=== PATIENT | female | born 1955 | race African-American/Black ===

== ENCOUNTER → 2016-11-09 | Outpatient (CLI) | payer OTHER ==
[2016-11-09 09:08] LABS: ABSOLUTE EOSINOPHILS # (AUTO) 0.3 10^3/uL (0.0-0.6); ABSOLUTE LYMPHOCYTES (AUTO) 1.3 10^3/uL (0.5-4.7); ABSOLUTE MONOCYTES (AUTO) 0.3 10^3/uL (0.1-1.4); ABSOLUTE NEUT (AUTO) 2.8 10^3/uL (1.7-8.2); BASOPHILS % (AUTO) 0.8 % (0-2); EOSINOPHILS % (AUTO) 5.9 % (0-6); LYMPHOCYTES % (AUTO) 27.8 % (13-45); MEAN CORPUSCULAR HEMOGLOBIN 27.6 pg (27.0-33.4); MEAN CORPUSCULAR HGB CONC 35.3 g/dL (32.0-36.0); MEAN CORPUSCULAR VOLUME 78 fl (80-97); MONOCYTES % (AUTO) 6.7 % (3-13); RED BLOOD COUNT 4.34 10^6/uL (3.72-5.28); RED CELL DISTRIBUTION WIDTH 17.4 % (11.5-14.0); SEGMENTED NEUTROPHILS % (AUTO) 58.8 % (42-78); WHITE BLOOD COUNT 4.8 10^3/uL (4.0-10.5)
[2016-11-09 09:29] LABS: ALANINE AMINOTRANSFERASE 18 U/L (9-52); ALBUMIN 4.5 g/dL (3.5-5.0); ALKALINE PHOSPHATASE 98 U/L (38-126); ANION GAP 13 (5-19); ASPARTATE AMINO TRANSFERASE 18 U/L (14-36); BILIRUBIN,TOTAL 0.8 mg/dL (0.2-1.3); BLOOD UREA NITROGEN 14 mg/dL (7-20); CALCIUM 9.5 mg/dL (8.4-10.2); CARBON DIOXIDE 27 mmol/L (22-30); CHLORIDE 106 mmol/L (98-107); CHOLESTEROL 149.58 mg/dL (0-200); CREATININE RESULT 0.97 mg/dL (0.52-1.25); Direct HDL 61 mg/dL (>40); GLUCOSE 100 mg/dL (75-110); SODIUM 145.8 mmol/L (137-145); TOTAL PROTEIN 7.4 g/dL (6.3-8.2); TRIGLYCERIDES 75 mg/dL (<150)
[2016-11-09 09:30] LABS: POTASSIUM 4.1 mmol/L (3.6-5.0)
[2016-11-09 09:40] LABS: DIRECT LDL 33 mg/dL (<100)
[2016-11-09 12:52] LABS: ERYTHROCYTE SEDIMENTATION RATE 30 mm/hr (0-30)
[2016-11-11 14:11] LABS: CYCLIC CITRUL PEPTIDE IGG/A AB 6 units (0-19)
== END ==
LOC: OD 08:02
DX: I10 Essential (primary) hypertension (principal); M79.7 Fibromyalgia
CPT/HCPCS: 36415; 80053; 80061; 83036; 84443; 85025; 85652; 86038; 86200; 86430

== ENCOUNTER 2016-11-14 04:26 | Emergency (ER) | payer OTHER ==
[2016-11-14 07:20] LABS: ABSOLUTE BASOPHILS # (AUTO) 0.1 10^3/uL (0.0-0.2); ABSOLUTE EOSINOPHILS # (AUTO) 0.4 10^3/uL (0.0-0.6); ABSOLUTE LYMPHOCYTES (AUTO) 1.3 10^3/uL (0.5-4.7); ABSOLUTE MONOCYTES (AUTO) 0.6 10^3/uL (0.1-1.4); ABSOLUTE NEUT (AUTO) 5.5 10^3/uL (1.7-8.2); BASOPHILS % (AUTO) 1.1 % (0-2); EOSINOPHILS % (AUTO) 4.9 % (0-6); HEMATOCRIT 35.1 % (36.0-47.0); HEMOGLOBIN 12.2 g/dL (12.0-15.5); HGB HCT DIFFERENCE 1.5; LYMPHOCYTES % (AUTO) 16.2 % (13-45); MEAN CORPUSCULAR HEMOGLOBIN 27.5 pg (27.0-33.4); MEAN CORPUSCULAR HGB CONC 34.8 g/dL (32.0-36.0); MEAN CORPUSCULAR VOLUME 79 fl (80-97); MONOCYTES % (AUTO) 7.9 % (3-13); RED BLOOD COUNT 4.44 10^6/uL (3.72-5.28); RED CELL DISTRIBUTION WIDTH 17.4 % (11.5-14.0); SEGMENTED NEUTROPHILS % (AUTO) 69.9 % (42-78); WHITE BLOOD COUNT 7.9 10^3/uL (4.0-10.5)
[2016-11-14 07:37] LABS: ALANINE AMINOTRANSFERASE 21 U/L (9-52); ALBUMIN 4.3 g/dL (3.5-5.0); ALKALINE PHOSPHATASE 106 U/L (38-126); ANION GAP 13 (5-19); ASPARTATE AMINO TRANSFERASE 19 U/L (14-36); BILIRUBIN,TOTAL 0.9 mg/dL (0.2-1.3); BLOOD UREA NITROGEN 14 mg/dL (7-20); CALCIUM 10.1 mg/dL (8.4-10.2); CARBON DIOXIDE 31 mmol/L (22-30); CHLORIDE 102 mmol/L (98-107); CREATINE KINASE 74 U/L (30-135); CREATININE RESULT 1.11 mg/dL (0.52-1.25); GLUCOSE 105 mg/dL (75-110); POTASSIUM 4.5 mmol/L (3.6-5.0); TOTAL PROTEIN 7.8 g/dL (6.3-8.2)
[2016-11-14 07:38] LABS: APPEARANCE,URINE CLEAR; BILIRUBIN,URINE NEGATIVE (NEGATIVE); GLUCOSE, URINE NEGATIVE (NEGATIVE); KETONES,URINE NEGATIVE (NEGATIVE); LEUKOCYTE ESTERASE,URINE NEGATIVE (NEGATIVE); NITRITE,URINE NEGATIVE (NEGATIVE); PROTEIN,URINE NEGATIVE (NEGATIVE); URINE SPECIFIC GRAVITY 1.012; UROBILINOGEN,URINE NEGATIVE mg/dL (<2.0)
[2016-11-14 07:50] LABS: CREATINE KINASE MB 0.37 ng/mL (<4.55); TROPONIN I < 0.012 ng/mL
[2016-11-14] MEDS ORDERED: AZITHROMYCIN 250 MG TABLET PO ONE (09:55)
--- NOTE | 2016-11-14 09:55 | ER Document Report ---
ED Respiratory Problem - General Mode of Arrival: Ambulatory Information source: Patient TRAVEL OUTSIDE OF THE [place] IN LAST 30 DAYS: No - HPI Patient complains to provider of: Cough Onset: Other - Approximately 3 weeks ago Duration: Worse/persistent Cough: Productive Sputum amount: Moderate Sputum color: Green - With odor Sputum consistency: Thick Associated symptoms: denies: Fever <OWEN HURLEY - Last Filed: 11/14/16 10:02> <STEPHANIE LOVE - Last Filed: 11/14/16 10:16> - General Chief Complaint: Productive Cough Stated Complaint: LABORED BREATHING,COUGH,CHEST CONGESTION Notes: Patient is a 60-year-old female presenting to the emergency department chief complaint cough onset approximately 3 weeks ago. Patient states that the cough became productive 11/11/2016, and last night the sputum became green with a bad odor. Patient denies fever. Patient states that the cough is exacerbated by laying flat, and she has chest pain secondary to her cough. Patient did receive the flu vaccination. Patient's primary care provider is the [facility]. (OWEN HURLEY) - Related Data Allergies/Adverse Reactions: No Known Allergies Allergy (Verified 11/14/16 04:38) Past Medical History - General Information source: Patient - Social History Smoking Status: Never Smoker Chew tobacco use (# tins/day): No Frequency of alcohol use: None Drug Abuse: None Family History: Reviewed & Not Pertinent - Past Medical History Cardiac Medical History: Reports: Hx Hypertension Renal/ Medical History: Denies: Hx Peritoneal Dialysis Musculoskeltal Medical History: Reports Hx Arthritis Past Surgical History: Reports: Hx Hysterectomy - Partial - Immunizations Hx Diphtheria, Pertussis, Tetanus Vaccination: Yes <OWEN HURLEY - Last Filed: 11/14/16 10:02> Review of Systems - Review of Systems Constitutional: No symptoms reported. denies: Fever EENT: No symptoms reported Cardiovascular: See HPI, Chest pain - Secondary to cough Respiratory: See HPI, Cough, Sputum Gastrointestinal: No symptoms reported Genitourinary: No symptoms reported Female Genitourinary: No symptoms reported Musculoskeletal: No symptoms reported Skin: No symptoms reported Hematologic/Lymphatic: No symptoms reported Neurological/Psychological: No symptoms reported -: Yes All other systems reviewed and negative <OWEN HURLEY - Last Filed: 11/14/16 10:02> Physical Exam - Vital signs Interpretation: Normal - General General appearance: Alert - HEENT Head: Normocephalic, Atraumatic Eyes: Normal Pupils: PERRL - Respiratory Respiratory status: No respiratory distress Chest status: Nontender Breath sounds: Productive cough - Cardiovascular Rhythm: Regular Heart sounds: Normal auscultation Murmur: No - Abdominal Inspection: Normal Distension: No distension Bowel sounds: Normal Tenderness: Nontender Organomegaly: No organomegaly - Back Back: Normal, Nontender - Extremities General upper extremity: Normal inspection, Nontender, Normal color, Normal temperature General lower extremity: Normal inspection, Nontender, Normal color, Normal temperature - Neurological Neuro grossly intact: Yes Cognition: Normal Arie Coma Scale Eye Opening: Spontaneous Roscoe Coma Scale Verbal: Oriented Roscoe Coma Scale Motor: Obeys Commands Arie Coma Scale Total: 15 Speech: Normal - Psychological Associated symptoms: Normal affect, Normal mood - Skin Skin Temperature: Warm Skin Moisture: Dry Skin Color: Normal <OWEN HURLEY - Last Filed: 11/14/16 10:02> Course - Laboratory Result Diagrams: 11/14/16 07:09 11/14/16 07:09 <OWEN HURLEY - Last Filed: 11/14/16 10:02> - Laboratory Result Diagrams: 11/14/16 07:09 11/14/16 07:09 <STEPHANIE LOVE - Last Filed: 11/14/16 10:16> - Vital Signs Vital signs: Temp Pulse Resp BP Pulse Ox 97.8 F 90 20 142/80 H 96 11/14/16 04:40 11/14/16 04:40 11/14/16 04:40 11/14/16 04:40 11/14/16 04:40 (OWEN HURLEY) (STEPHANIE LOVE) - Laboratory Laboratory results interpreted by me: 11/14/16 11/14/16 07:09 07:09 Hct 35.1 L MCV 79 L RDW 17.4 H Sodium 146.0 H Carbon Dioxide 31 H Est GFR (Non-Af Amer) 50 L (OWEN HURLEY) (STEPHANIE LOVE) Discharge <OWEN HURLEY - Last Filed: 11/14/16 10:02> <STEPHANIE LOVE - Last Filed: 11/14/16 10:16> - Discharge Clinical Impression: Bronchitis Condition: Stable Disposition: HOME, SELF-CARE Additional Instructions: Bronchitis You have acute bronchitis. This disease is an infection or inflammation of the air passageways in your lungs. Symptoms usually include cough, low grade fever, shortness of breath, and wheezing. The cough usually persists for a couple of weeks. Most cases of bronchitis get better without antibiotics. We prescribe antibiotics when we believe bacteria are damaging your airways, or if there's high risk the bronchitis will worsen into pneumonia. Increase your fluid intake. A cool mist humidifier may make your lungs more comfortable. An expectorant (cough medicine that loosens phlegm) can help. If you smoke, STOP!!! Recovery from bronchitis can be somewhat slow, but you should see improvement within a day or two. Repeated episodes of bronchitis may result in lung damage -- for example, chronic bronchitis, recurrent pneumonias, or emphysema. Call the doctor if you develop increasing fever, shortness of breath, chest pain, bloody sputum, or otherwise worsen. If you have not improved at all after several days, contact the physician. START THE MEDICATION PRESCRIBED TOMORROW. DRINK PLENTY OF FLUIDS. GET PLENTY OF REST. TRY ROBITUSSIN-DM FOR COUGH. FOLLOW UP WITH A LOCAL MEDICAL DOCTOR IF NOT IMPROVING. RETURN TO THE EMERGENCY ROOM IF ANY NEW OR WORSENING SYMPTOMS. Forms: Return to Work Scribe Attestation: 11/14/16 09:59 I personally performed the services described in the documentation, reviewed and edited the documentation which was dictated to the scribe in my presence, and it accurately records my words and actions. (STEPHANIE LOVE) Scribe Documentation - Scribe Written by Lavelle:: Owen Hurley 11/14/2016 0955 acting as scribe for :: Fanny <OWEN HURLEY - Last Filed: 11/14/16 10:02>
[2016-11-14 10:21] VITALS: BP 148/85
--- NOTE | 2016-11-14 20:02 | EKG REPORT ---
SEVERITY:- BORDERLINE ECG - SINUS RHYTHM PROBABLE LEFT ATRIAL ABNORMALITY : Confirmed by: Te Finnegan 14-Nov-2016 20:01:48
== END 2016-11-14 10:18 | disposition home or self-care (01) ==
LOC: ER 04:26
DX: J40 Bronchitis, not specified as acute or chronic (principal); R05 Cough; R06.02 Shortness of breath; R09.89 Other specified symptoms and signs involving the circulatory and respiratory systems
CPT/HCPCS: 36415; 71010; 80053; 81001; 82550; 82553; 83880; 84484; 85025; 93005; 93010; 99284

== ENCOUNTER → 2017-03-15 | Outpatient (CLI) | payer OTHER ==
[~2017-03-15] MED LIST: ALBUTEROL SULFATE 0.083% NEB 2.5 MG/3 ML AMPUL NEB ONE
--- NOTE | 2017-03-15 16:34 | Pulmonary Function Test ---
Pulmonary Function Test Date of Procedure:: 03/15/17 INDICATION:: Dyspnea Referring Provider: Dr. Oneyda Seo [employer]: Mayte Peters [employer] ENGINEER, [employer] - Report Spirometry: FVC 2.92 L 87% postbronchodilator therapy 2.99 L 89% FEV1 2.31 L 86% postbronchodilator therapy 2.38 L 89% FEV1/FVC % 79 postbronchodilator therapy 79 predicted 82 FEF 25-75% 2.47 88% postbronchodilator therapy 2.46 88% Impression: No evidence for obstructive ventilatory defect.
== END ==
LOC: RT 08:04
PROVIDERS: ATTEND Internal Medicine
DX: R06.2 Wheezing (principal)
CPT/HCPCS: 94060

== ENCOUNTER 2017-06-05 19:13 | Emergency (ER) | payer SELFPAY ==
[2017-06-05] MEDS ORDERED: ASPIRIN 81 MG TABLET, CHEWABLE PO ONE (19:21)
--- NOTE | 2017-06-05 20:31 | EKG REPORT ---
SEVERITY:- NORMAL ECG - SINUS RHYTHM : Confirmed by: Te Finnegan 05-Jun-2017 20:30:36
--- NOTE | 2017-06-05 21:05 | RADIOLOGY REPORT (SQ) ---
EXAM DESCRIPTION: CHEST SINGLE VIEW COMPLETED DATE/TIME: 06/05/2017 8:56 pm REASON FOR STUDY: congestion COMPARISON: 11/14/2016 EXAM PARAMETERS: NUMBER OF VIEWS: One view. TECHNIQUE: Single frontal radiographic view of the chest acquired. RADIATION DOSE: NA LIMITATIONS: None. FINDINGS: LUNGS AND PLEURA: No opacities, masses or pneumothorax. No pleural effusion. MEDIASTINUM AND HILAR STRUCTURES: No masses. Contour normal. HEART AND VASCULAR STRUCTURES: Heart normal in size. Normal vasculature. BONES: No acute findings. HARDWARE: None in the chest. OTHER: No other significant finding. IMPRESSION: NO ACUTE RADIOGRAPHIC FINDING IN THE CHEST. TECHNICAL DOCUMENTATION: JOB ID: [id number]
[2017-06-05] MEDS ORDERED: PREDNISONE 20 MG TABLET PO ONE (22:24)
[2017-06-05] MEDS ORDERED: ALBUTEROL SULFATE HFA (90 MCG/PUFF) 8 GM MDI (1 MDI/ER DISP) IH ONE (22:24)
--- NOTE | 2017-06-05 22:25 | ER Document Report ---
ED Respiratory Problem - General Mode of Arrival: Ambulatory Information source: Patient TRAVEL OUTSIDE OF THE [place] IN LAST 30 DAYS: No <NETTA KEE - Last Filed: 06/05/17 23:42> - General TRAVEL OUTSIDE OF THE [place] IN LAST 30 DAYS: No <ELEUTERIO THORPE - Last Filed: 06/06/17 00:28> - General Chief Complaint: Chest Congestion Stated Complaint: CONGESTION/CHEST PAIN Time Seen by Provider: 06/05/17 20:13 Notes: Patient is a 61-year-old female who presents to the emergency department today with complaints of a cough. According to daughter at bedside, the patient always has a cough. Patient states she has "chronic bronchitis". Patient states she has a burning pain in her left lung. Patient states she feels that she is wheezing and is having voice changes. (NETTA KEE) - Related Data Allergies/Adverse Reactions: No Known Allergies Allergy (Verified 06/05/17 19:17) Past Medical History - General Information source: Patient - Social History Smoking Status: Unknown if Ever Smoked Drug Abuse: None Family History: Reviewed & Not Pertinent Patient has suicidal ideation: No Patient has homicidal ideation: No - Past Medical History Cardiac Medical History: Reports: Hx Hypertension Musculoskeltal Medical History: Reports Hx Arthritis Past Surgical History: Reports: Hx Hysterectomy <NETTA KEE - Last Filed: 06/05/17 23:42> - Social History Smoking Status: Unknown if Ever Smoked Drug Abuse: None Family History: Reviewed & Not Pertinent Patient has suicidal ideation: No Patient has homicidal ideation: No - Past Medical History Cardiac Medical History: Reports: Hx Hypertension Renal/ Medical History: Denies: Hx Peritoneal Dialysis Musculoskeltal Medical History: Reports Hx Arthritis Past Surgical History: Reports: Hx Hysterectomy - Immunizations Hx Diphtheria, Pertussis, Tetanus Vaccination: Yes <ELEUTERIO THORPE - Last Filed: 06/06/17 00:28> Review of Systems - Review of Systems Constitutional: No symptoms reported EENT: No symptoms reported Cardiovascular: No symptoms reported Respiratory: See HPI, Cough Gastrointestinal: No symptoms reported Genitourinary: No symptoms reported Female Genitourinary: No symptoms reported Musculoskeletal: No symptoms reported Skin: No symptoms reported Hematologic/Lymphatic: No symptoms reported Neurological/Psychological: No symptoms reported -: Yes All other systems reviewed and negative <NETTA KEE - Last Filed: 06/05/17 23:42> Physical Exam <NETTA KEE - Last Filed: 06/05/17 23:42> <ELEUTERIO THORPE - Last Filed: 06/06/17 00:28> - Vital signs Vitals: Temp Pulse Resp BP Pulse Ox 98.7 F 75 20 148/79 H 97 06/05/17 19:17 06/05/17 19:17 06/05/17 19:17 06/05/17 19:17 06/05/17 19:17 - Notes Notes: Physical Exam: General: Alert, appears well. HEENT: Normocephalic. Atraumatic. PERRL. Extraocular movements intact. Oropharynx clear. Nasal congestion. Voice consistent with laryngitis. Neck: Supple. Non-tender. Respiratory: No respiratory distress. Clear and equal breath sounds bilaterally. Cardiovascular: Regular rate and rhythm. Abdominal: Normal Inspection. Non-tender. No distension. Normal Bowel Sounds. Back: Non-tender. No deformity or step off. Extremities: Moves all four extremities. Upper extremities: Normal inspection. Normal ROM. Lower extremities: Normal inspection. No edema. Normal ROM. Neurological: Normal cognition. AAOx4. Normal speech. Psychological: Normal affect. Normal Mood. Skin: Warm. Dry. Normal color. (NETTA KEE) Course <NETTA KEE - Last Filed: 06/05/17 23:42> - Diagnostic Test Radiology reviewed: Reports reviewed <ELEUTERIO THORPE - Last Filed: 06/06/17 00:28> - Re-evaluation Re-evalutation: 06/05 Patient with upper respiratory infection that is unlikely bacterial, however patient would like antibiotics. Patient will also been given steroids as her daughter states that this is helped in the past. Vitals are stable. Afebrile. No difficulty breathing. Stable for discharge. Follow-up with PMD. (ELEUTERIO THORPE) - Vital Signs Vital signs: Temp Pulse Resp BP Pulse Ox 98.7 F 75 20 129/81 H 97 06/05/17 19:17 06/05/17 19:17 06/05/17 19:17 06/05/17 22:45 06/05/17 22:46 Discharge <NETTA KEE - Last Filed: 06/05/17 23:42> <ELEUTERIO THORPE - Last Filed: 06/06/17 00:28> - Discharge Clinical Impression: Cough Condition: Stable Disposition: HOME, SELF-CARE Instructions: Bronchitis ([facility]) Additional Instructions: Please follow-up with your doctor this week. Prescriptions: Azithromycin [Zithromax 250 mg Tablet] 250 mg PO ASDIR PRN #6 tablet PRN Reason: Prednisone 40 mg PO DAILY #6 tablet Referrals: [facility] [Primary Care Provider] - Follow up as needed Scribe Attestation: 06/06/17 00:28 I personally performed the services described in the documentation, reviewed and edited the documentation which was dictated to the scribe in my presence, and it accurately records my words and actions. (ELEUTERIO THORPE) Scribe Documentation - Scribe Written by Lavelle:: Lavelle Montero, 06/05/2017 2354 acting as scribe for :: Jennifer <NETTA KEE - Last Filed: 06/05/17 23:42>
[2017-06-05] MEDS ORDERED: ALBUTEROL SULFATE 0.083% NEB 2.5 MG/3 ML AMPUL NEB ONE (22:29)
[2017-06-05] MEDS ORDERED: PREDNISONE 20 MG TABLET ONE (22:29)
[2017-06-05 22:51] VITALS: BP 129/81
== END 2017-06-05 22:51 | disposition home or self-care (01) ==
LOC: ER 19:13
DX: R05 Cough (principal); R09.89 Other specified symptoms and signs involving the circulatory and respiratory systems; R07.9 Chest pain, unspecified
CPT/HCPCS: 93005; 99284; 36415; 84484; 71010; 93010; J7512; J3490

== ENCOUNTER → 2017-08-11 | Outpatient (CLI) | payer OTHER ==
--- NOTE | 2017-08-11 11:30 | RADIOLOGY REPORT (SQ) ---
EXAM DESCRIPTION: VENOUS BILATERAL LOWER COMPLETED DATE/TIME: 08/11/2017 11:19 am REASON FOR STUDY: PAIN M79.661 PAIN IN RIGHT LOWER LEG M79.662 PAIN IN LEFT LOWER LEG COMPARISON: None. TECHNIQUE: Dynamic and static zhang scale and color images acquired of both lower extremity venous sy stems. Selected spectral images acquired with additional compression and augmentation maneuvers. Imag es stored on PACS. LIMITATIONS: None. FINDINGS: RIGHT LEG COMMON FEMORAL AND FEMORAL: Normal phasicity, compression and augmentation. No visualized echogenic m aterial on zhang scale. No defects on color images. POPLITEAL: Normal compression and augmentation. No visualized echogenic material on zhang scale. No de fects on color images. CALF VESSELS: Normal compression and augmentation. No visualized echogenic material on zhang scale. No defects on color image. GSV AND SSV: Normal compression. No visualized echogenic material on zhang scale. No defects on color images. ANY DEEP VENOUS INSUFFICIENCY: Not evaluated. ANY EVIDENCE OF POPLITEAL CYST: No. OTHER: No other significant finding. LEFT LEG COMMON FEMORAL AND FEMORAL: Normal phasicity, compression and augmentation. No visualized echogenic m aterial on zhang scale. No defects on color images. POPLITEAL: Normal compression and augmentation. No visualized echogenic material on zhang scale. No de fects on color images. CALF VESSELS: Normal compression and augmentation. No visualized echogenic material on zhang scale. No defects on color images. GSV AND SSV: Normal compression. No visualized echogenic material on zhang scale. No defects on color images. ANY DEEP VENOUS INSUFFICIENCY: Not evaluated. ANY EVIDENCE POPLITEAL CYST: No. OTHER: No other significant finding. IMPRESSION: NO EVIDENCE DVT OR SVT IN EITHER LEG. TECHNICAL DOCUMENTATION: JOB ID: [id number] [employer]- All Rights Reserved
== END ==
LOC: CCC 10:31
DX: M79.661 Pain in right lower leg (principal); M79.662 Pain in left lower leg
CPT/HCPCS: 93970

== ENCOUNTER → 2017-10-31 | Outpatient (CLI) | payer BC ==
[2017-10-31 08:24] LABS: ABSOLUTE BASOPHILS # (AUTO) 0.1 10^3/uL (0.0-0.2); ABSOLUTE EOSINOPHILS # (AUTO) 0.3 10^3/uL (0.0-0.6); ABSOLUTE LYMPHOCYTES (AUTO) 1.2 10^3/uL (0.5-4.7); ABSOLUTE MONOCYTES (AUTO) 0.4 10^3/uL (0.1-1.4); ABSOLUTE NEUT (AUTO) 2.5 10^3/uL (1.7-8.2); BASOPHILS % (AUTO) 1.2 % (0-2); EOSINOPHILS % (AUTO) 6.7 % (0-6); HEMATOCRIT 34.8 % (36.0-47.0); HEMOGLOBIN 12.1 g/dL (12.0-15.5); LYMPHOCYTES % (AUTO) 26.7 % (13-45); MEAN CORPUSCULAR HEMOGLOBIN 28.2 pg (27.0-33.4); MEAN CORPUSCULAR HGB CONC 34.8 g/dL (32.0-36.0); MEAN CORPUSCULAR VOLUME 81 fl (80-97); MONOCYTES % (AUTO) 9.8 % (3-13); PLATELET COUNT 245 10^3/uL (150-450); RED BLOOD COUNT 4.31 10^6/uL (3.72-5.28); RED CELL DISTRIBUTION WIDTH 16.8 % (11.5-14.0); SEGMENTED NEUTROPHILS % (AUTO) 55.6 % (42-78); TOTAL CELLS COUNTED % (AUTO) 100 %; WHITE BLOOD COUNT 4.4 10^3/uL (4.0-10.5)
[2017-10-31 08:46] LABS: ALANINE AMINOTRANSFERASE 25 U/L (9-52); ALBUMIN 4.6 g/dL (3.5-5.0); ALKALINE PHOSPHATASE 89 U/L (38-126); ANION GAP 10 (5-19); ASPARTATE AMINO TRANSFERASE 27 U/L (14-36); BILIRUBIN,DIRECT 0.4 mg/dL (0.0-0.4); BILIRUBIN,TOTAL 1.1 mg/dL (0.2-1.3); BLOOD UREA NITROGEN 13 mg/dL (7-20); CALCIUM 10.1 mg/dL (8.4-10.2); CARBON DIOXIDE 31 mmol/L (22-30); CHLORIDE 104 mmol/L (98-107); CHOLESTEROL 145.05 mg/dL (0-200); GLUCOSE 111 mg/dL (75-110); POTASSIUM 4.4 mmol/L (3.6-5.0); SODIUM 144.6 mmol/L (137-145); TOTAL PROTEIN 7.7 g/dL (6.3-8.2); TRIGLYCERIDES 96 mg/dL (<150)
[2017-10-31 08:57] LABS: DIRECT LDL 38 mg/dL (<100)
== END ==
LOC: OD 07:38
PROVIDERS: ATTEND Family Medicine Geriatric Medicine
DX: I10 Essential (primary) hypertension (principal); D64.9 Anemia, unspecified; M17.0 Bilateral primary osteoarthritis of knee; Z79.899 Other long term (current) drug therapy
CPT/HCPCS: 36415; 80053; 80061; 82607; 82746; 84443; 85025

== ENCOUNTER → 2017-11-07 | Outpatient (CLI) | payer BC | LOC: OD 07:43 | PROVIDERS: ATTEND Family Medicine Geriatric Medicine | DX: R73.9 Hyperglycemia, unspecified (principal); Z79.899 Other long term (current) drug therapy | CPT/HCPCS: 36415; 82947; 82950; 83036 ==

== ENCOUNTER → 2018-01-04 | Outpatient (CLI) | payer BC ==
--- NOTE | 2018-01-04 11:53 | RADIOLOGY REPORT (SQ) ---
EXAM DESCRIPTION: CHEST PA/LATERAL COMPLETED DATE/TIME: 01/04/2018 10:42 am REASON FOR STUDY: COUGH,COPD COMPARISON: May 2017 EXAM PARAMETERS: NUMBER OF VIEWS: two views TECHNIQUE: Digital Frontal and Lateral radiographic views of the chest acquired. RADIATION DOSE: NA LIMITATIONS: none FINDINGS: LUNGS AND PLEURA: No opacities, masses or pneumothorax. No pleural effusion. MEDIASTINUM AND HILAR STRUCTURES: No masses or contour abnormalities. HEART AND VASCULAR STRUCTURES: Heart normal size. No evidence for failure. BONES: No acute findings. HARDWARE: None in the chest. OTHER: No other significant finding. IMPRESSION: NO SIGNIFICANT RADIOGRAPHIC FINDING IN THE CHEST. TECHNICAL DOCUMENTATION: JOB ID: [id number] [employer]- All Rights Reserved Reading location - IP/workstation name: [email or web address]
== END ==
LOC: OD 10:30
PROVIDERS: ATTEND Family Medicine Geriatric Medicine
DX: J44.9 Chronic obstructive pulmonary disease, unspecified (principal); R05 Cough
CPT/HCPCS: 71046

== ENCOUNTER 2018-02-11 06:29 | Observation (INO) | payer BC ==
[2018-02-11] MEDS ORDERED: MAG HYDROX/AL HYDROX/SIMETH SUSP 30 ML UDCUP PO ONE (07:09)
[2018-02-11] MEDS ORDERED: ONDANSETRON HCL INJ/PF 4 MG/2 ML SDV IV ONE (07:09)
[2018-02-11] MEDS ORDERED: LIDOCAINE 2% VISCOUS SOLN 20 ML UDCUP PO ONE (07:09)
--- NOTE | 2018-02-11 07:09 | ER Document Report ---
ED General <STEPHANIE LOVE - Last Filed: 02/11/18 08:34> - General Mode of Arrival: Ambulatory Information source: Patient TRAVEL OUTSIDE OF THE [place] IN LAST 30 DAYS: No <NETTA KEE - Last Filed: 02/11/18 08:54> - General Chief Complaint: Chest Pain Stated Complaint: CHEST PAIN Time Seen by Provider: 02/11/18 07:00 Notes: Patient is a 62 year old female that presents to the emergency department today with complaints of upper abdominal pain with associated vomiting. Patient states her pain has been consistent since onset and did not change with the vomiting. Patient mentions that she has been seen here before for these symptoms but upon review of records it does not appear that this is correct. Daughter states "Mom this is [place], [place]" which suggests she has been seen elsewhere for this. (NETTA KEE) - Related Data Allergies/Adverse Reactions: No Known Allergies Allergy (Verified 06/05/17 19:17) Past Medical History - General Information source: Patient - Social History Smoking Status: Never Smoker Cigarette use (# per day): No Frequency of alcohol use: None Drug Abuse: None Lives with: Family Family History: Reviewed & Not Pertinent - Past Medical History Cardiac Medical History: Reports: Hx Hypertension Renal/ Medical History: Denies: Hx Peritoneal Dialysis Musculoskeltal Medical History: Reports Hx Arthritis Past Surgical History: Reports: Hx Hysterectomy - Immunizations Hx Diphtheria, Pertussis, Tetanus Vaccination: Yes <NETTA KEE - Last Filed: 02/11/18 08:54> Review of Systems - Review of Systems Constitutional: No symptoms reported EENT: No symptoms reported Cardiovascular: No symptoms reported Respiratory: No symptoms reported Gastrointestinal: See HPI, Abdominal pain, Vomiting Genitourinary: No symptoms reported Female Genitourinary: No symptoms reported Musculoskeletal: No symptoms reported Skin: No symptoms reported Hematologic/Lymphatic: No symptoms reported Neurological/Psychological: No symptoms reported -: Yes All other systems reviewed and negative <NETTA KEE - Last Filed: 02/11/18 08:54> Physical Exam <STEPHANIE LOVE - Last Filed: 02/11/18 08:34> <NETTA KEE - Last Filed: 02/11/18 08:54> - Vital signs Vitals: Temp Pulse Resp BP Pulse Ox 98.8 F 116 H 22 H 145/93 H 100 02/11/18 06:47 02/11/18 06:47 02/11/18 06:47 02/11/18 06:47 02/11/18 06:47 - Notes Notes: Physical Exam: General: Alert, hyperventilating, appears uncomfortable. HEENT: Normocephalic. Atraumatic. PERRL. Extraocular movements intact. Oropharynx clear. Neck: Supple. Non-tender. Respiratory: No respiratory distress. Clear and equal breath sounds bilaterally. Tachypneic. No chest wall or sternal tenderness with palpation. Cardiovascular: Regular rate and rhythm. Abdominal: RUQ and epigastric tenderness with palpation. No distension. Normal Bowel Sounds. Back: Non-tender. No deformity or step off. Extremities: Moves all four extremities. Upper extremities: Normal inspection. Normal ROM. Lower extremities: Normal inspection. No edema. Normal ROM. Neurological: Normal cognition. AAOx4. Normal speech. Psychological: Normal affect. Normal Mood. Skin: Warm. Dry. Normal color. (NETTA KEE) Course - Laboratory Result Diagrams: 02/11/18 07:15 02/11/18 07:15 - Diagnostic Test Radiology reviewed: Image reviewed, Reports reviewed - Multiple small gallstones. Radiologist report is no gallbladder wall thickening, the techs worksheet reports gallbladder wall thickening and positive Ewing sign. - EKG Interpretation by Me EKG shows normal: Sinus rhythm, [place], Intervals, QRS Complexes. abnormal: ST-T Waves - Inferior to T abnormalities Rate: Tachycardia - 113 When compared to previous EKG there are: No significant change - Consults Dr. Munoz Time consulted: 08:35 Consulted provider: will come to ER <STEPHANIE LOVE - Last Filed: 02/11/18 08:34> - Laboratory Result Diagrams: 02/11/18 07:15 02/11/18 07:15 <NETTA KEE - Last Filed: 02/11/18 08:54> - Vital Signs Vital signs: Temp Pulse Resp BP Pulse Ox 98.8 F 116 H 22 H 145/93 H 100 02/11/18 06:47 02/11/18 06:47 02/11/18 06:47 02/11/18 06:47 02/11/18 06:47 - Laboratory Laboratory results interpreted by me: 02/11/18 02/11/18 07:15 07:15 RDW 16.7 H Seg Neutrophils % 84.9 H Lymphocytes % 11.9 L Monocytes % 2.7 L Anion Gap 21 H Glucose 182 H Calcium 10.6 H Total Protein 8.4 H Albumin 5.1 H Discharge - Discharge Admitting Provider: Surgicalist Unit Admitted: Surgical Floor <STEPHANIE LOVE - Last Filed: 02/11/18 08:34> <NETTA KEE - Last Filed: 02/11/18 08:54> - Discharge Clinical Impression: Cholelithiasis and acute cholecystitis without obstruction Condition: Stable Scribe Attestation: 02/11/18 08:25 I personally performed the services described in the documentation, reviewed and edited the documentation which was dictated to the scribe in my presence, and it accurately records my words and actions. (STEPHANIE LOVE) Scribe Documentation - Scribe Written by Lavelle:: Lavelle Monetro, 02/11/2018 0819 acting as scribe for :: Fanny <NETTA KEE - Last Filed: 02/11/18 08:54>
[2018-02-11] MEDS ORDERED: MORPHINE SULFATE 10 MG/ML INJ IV ONE (07:11)
[2018-02-11 07:36] LABS: ABSOLUTE MONOCYTES (AUTO) 0.2 10^3/uL (0.1-1.4); ABSOLUTE NEUT (AUTO) 7.2 10^3/uL (1.7-8.2); BASOPHILS % (AUTO) 0.4 % (0-2); EOSINOPHILS % (AUTO) 0.1 % (0-6); HEMATOCRIT 37.1 % (36.0-47.0); HEMOGLOBIN 12.8 g/dL (12.0-15.5); LYMPHOCYTES % (AUTO) 11.9 % (13-45); MEAN CORPUSCULAR HEMOGLOBIN 28.1 pg (27.0-33.4); MEAN CORPUSCULAR HGB CONC 34.6 g/dL (32.0-36.0); MEAN CORPUSCULAR VOLUME 81 fl (80-97); MONOCYTES % (AUTO) 2.7 % (3-13); PLATELET COUNT 276 10^3/uL (150-450); RED BLOOD COUNT 4.57 10^6/uL (3.72-5.28); RED CELL DISTRIBUTION WIDTH 16.7 % (11.5-14.0); SEGMENTED NEUTROPHILS % (AUTO) 84.9 % (42-78); TOTAL CELLS COUNTED % (AUTO) 100 %; WHITE BLOOD COUNT 8.5 10^3/uL (4.0-10.5)
[2018-02-11 07:45] LABS: ALANINE AMINOTRANSFERASE 22 U/L (9-52); ALBUMIN 5.1 g/dL (3.5-5.0); ALKALINE PHOSPHATASE 109 U/L (38-126); ASPARTATE AMINO TRANSFERASE 25 U/L (14-36); BILIRUBIN,DIRECT 0.4 mg/dL (0.0-0.4); BILIRUBIN,TOTAL 0.8 mg/dL (0.2-1.3); BLOOD UREA NITROGEN 14 mg/dL (7-20); CALCIUM 10.6 mg/dL (8.4-10.2); CARBON DIOXIDE 24 mmol/L (22-30); CHLORIDE 99 mmol/L (98-107); CREATINE KINASE 63 U/L (30-135); GLUCOSE 182 mg/dL (75-110); TOTAL PROTEIN 8.4 g/dL (6.3-8.2)
[2018-02-11 07:51] LABS: ANION GAP 21 (5-19); SODIUM 144.4 mmol/L (137-145)
--- NOTE | 2018-02-11 08:15 | RADIOLOGY REPORT (SQ) ---
EXAM DESCRIPTION: U/S ABDOMEN LIMITED W/O DOP COMPLETED DATE/TIME: 02/11/2018 7:57 am REASON FOR STUDY: RUQ and epigastric abd pain with nausea vomiting COMPARISON: None. TECHNIQUE: Dynamic and static grayscale images acquired of the abdomen and recorded on PACS. Jasmyneo monie selected color Doppler and spectral images recorded. LIMITATIONS: None. FINDINGS: PANCREAS: No masses. No peripancreatic edema or fluid collections. LIVER: Echotexture is coarse with increased echogenicity consistent with fatty infiltration. LIVER VASCULATURE: Normal directional flow of the main portal vein and hepatic veins. GALLBLADDER: Gallstone(s). No pericholecystic fluid. No wall thickening. ULTRASOUND-DETECTED GUZMAN'S SIGN: Negative. INTRAHEPATIC DUCTS AND COMMON DUCT: CBD and intrahepatic ducts normal caliber. No filling defects. INFERIOR VENA CAVA: Normal flow. AORTA: No aneurysm. RIGHT KIDNEY: Normal size. Normal echogenicity. No solid or suspicious masses. No hydronephrosis. No calcifications. PERITONEAL AND RIGHT PLEURAL SPACE: No ascites or effusions. OTHER: No other significant finding. IMPRESSION: GALLSTONES. FATTY INFILTRATION OF THE LIVER. OTHERWISE NORMAL RIGHT UPPER QUADRANT ULT RASOUND. TECHNICAL DOCUMENTATION: JOB ID: [id number] [employer]- All Rights Reserved Reading location - IP/workstation name: [email or web address]
[2018-02-11 10:50] LABS: APPEARANCE,URINE CLEAR; BILIRUBIN,URINE NEGATIVE (NEGATIVE); COLOR,URINE YELLOW; GLUCOSE, URINE 50 mg/dL (NEGATIVE); KETONES,URINE 20 mg/dL (NEGATIVE); LEUKOCYTE ESTERASE,URINE NEGATIVE (NEGATIVE); NITRITE,URINE NEGATIVE (NEGATIVE); PROTEIN,URINE 30 mg/dL (NEGATIVE); URINE SPECIFIC GRAVITY 1.024; UROBILINOGEN,URINE NEGATIVE mg/dL (<2.0)
[2018-02-11] MEDS ORDERED: NORMAL SALINE 1000 ML 1,000 ML IV PRN (11:10)
[2018-02-11] MEDS ORDERED: PROCHLORPERAZINE EDISYLATE INJ 10 MG/2 ML VIAL IV PRN (11:31)
[2018-02-11] MEDS ORDERED: MORPHINE SULFATE 10 MG/ML INJ IV PRN (14:16)
[2018-02-11] MEDS ORDERED: GLUCAGON,HUMAN RECOMB 1 MG INJ SUBCUT PRN (14:16)
[2018-02-11] MEDS ORDERED: DEXTROSE 50%-WATER 25 GM/50 ML DISP.SYRIN IV PRN ×2 (14:16)
[2018-02-11] MEDS ORDERED: DEXTROSE 40% GEL 15 GM TUBE PO PRN ×2 (14:16)
[2018-02-11] MEDS ORDERED: ONDANSETRON HCL INJ/PF 4 MG/2 ML SDV IV PRN (14:16)
--- NOTE | 2018-02-11 14:16 | PDOC H&P ---
History of Present Illness Admission Date/PCP: 02/11/18 09:09 RENALDO YEBOAH MD Patient complains of: RUQ abdominal pain History of Present Illness: TIANNA SAENZ is a 62 year old female with a 24 hrs hx of abdominal pain, nausea, emesis. She presented to the ER with the above symptoms and an US of the GB has been done and it demonstrates cholelithiasis with normal appearing gallbladder. Past Medical History Cardiac Medical History: Reports: Hypertension Pulmonary Medical History: Reports: Chronic Obstructive Pulmonary Disease (COPD) Musculoskeltal Medical History: Reports: Arthritis Past Surgical History Past Surgical History: Reports: Hysterectomy Social History Lives with: Family Smoking Status: Never Smoker Frequency of Alcohol Use: None Hx Recreational Drug Use: No Drugs: None Hx Prescription Drug Abuse: No - Advance Directive Resuscitation Status: Full Code Family History Family History: Reviewed & Not Pertinent Parental Family History Reviewed: No Children Family History Reviewed: No Sibling(s) Family History Reviewed.: No Medication/Allergy Home Medications: Hydrochlorothiazide [Hydrochlorothiazide] 12.5 mg PO BID 02/11/18 Metoprolol Tartrate [Lopressor 25 mg Tablet] 12.5 mg PO BID 02/11/18 Allergies/Adverse Reactions: No Known Allergies Allergy (Verified 06/05/17 19:17) Physical Exam Vital Signs: Temp Pulse Resp BP Pulse Ox 98.4 F 123 H 16 142/80 H 97 02/11/18 10:23 02/11/18 10:23 02/11/18 10:23 02/11/18 10:23 02/11/18 10:23 General appearance: PRESENT: no acute distress, cooperative Head exam: PRESENT: atraumatic Eye exam: PRESENT: EOMI Mouth exam: PRESENT: moist, neck supple Neck exam: PRESENT: full ROM Respiratory exam: PRESENT: clear to auscultation sally Cardiovascular exam: PRESENT: RRR GI/Abdominal exam: PRESENT: Ewing's sign, normal bowel sounds, soft, tenderness - right upper quadrant Musculoskeletal exam: PRESENT: full ROM Neurological exam: PRESENT: alert, altered Psychiatric exam: PRESENT: flat affect Results Laboratory Results: 02/11/18 10:09 Urine Color YELLOW Urine Appearance CLEAR Urine pH 7.0 Ur Specific [place] 1.024 Urine Protein 30 H Urine Glucose (UA) 50 H Urine Ketones 20 H Urine Blood NEGATIVE Urine Nitrite NEGATIVE Ur Leukocyte Esterase NEGATIVE Urine WBC (Auto) 1 Urine RBC (Auto) 0 Impressions: Abdomen Ultrasound 02/11/18 07:09 IMPRESSION: GALLSTONES. FATTY INFILTRATION OF THE LIVER. OTHERWISE NORMAL RIGHT UPPER QUADRANT ULTRASOUND. Assessment & Plan - Diagnosis (1) Cholelithiasis Qualifiers: Cholelithiasis location: gallbladder Cholecystitis presence: without cholecystitis Biliary obstruction: without biliary obstruction Qualified Code(s): K80.20 - Calculus of gallbladder without cholecystitis without obstruction Is this a current diagnosis for this admission?: Yes - Plan Summary Plan Summary: A/ RUQ abdominal pain US of the gallbladder shows cholelithiasis Symptomatic choilelithiasis normal blood work PE demonstrated abdominal RUQ tenderness P/ Admit Clear liquid diet NPO after midnight Consent for laparoscopic cholecystectomy possible open, possible cholangiogram Mefoxin 2 gr IVPB preop IVF Procedure, risks, benefits, complications, including bleeding from the liver and or injury of the common bile duct requiring transfer to a tertiary medical center for open repair have been discussed with the patient; she understands all the above, her questions were answered, and she decides to proceed. In addition, the patient declines possible blood transfusion because of her anglican believes (she is a [employer]); she has been fully explained risks and alternatives of blood transfusion and the risks of not receiving blood products if needed, she understands all of them and still declines blood transfusion. Anesthesia will be made aware.
--- NOTE | 2018-02-11 16:15 | EKG REPORT ---
SEVERITY:- BORDERLINE ECG - SINUS TACHYCARDIA BORDERLINE T ABNORMALITIES, INFERIOR LEADS : Confirmed by: Te Finnegan 11-Feb-2018 16:14:14
--- NOTE | 2018-02-11 16:15 | EKG REPORT ---
SEVERITY:- BORDERLINE ECG - SINUS TACHYCARDIA PROBABLE LEFT ATRIAL ABNORMALITY BORDERLINE PROLONGED QT INTERVAL : Confirmed by: Te Finnegan 11-Feb-2018 16:14:06
[2018-02-11] MEDS: PROMETHAZINE HCL INJ 25 MG/1 ML VIAL IV PRN (16:16)
[2018-02-11] MEDS: FAMOTIDINE INJ/PF 20 MG/2 ML SDV IV SCH (21:57)
[2018-02-12] MEDS ORDERED: CEFOXITIN SODIUM 2 GM in DEXTROSE 5%-WATER 100 ML IV PRN (05:00)
[2018-02-12] MEDS: NORMAL SALINE 1000 ML 1,000 ML IV PRN (05:10)
[2018-02-12 06:16] LABS: HEMATOCRIT 35.6 % (36.0-47.0); HEMOGLOBIN 12.3 g/dL (12.0-15.5); MEAN CORPUSCULAR HGB CONC 34.4 g/dL (32.0-36.0); MEAN CORPUSCULAR VOLUME 81 fl (80-97); PLATELET COUNT 254 10^3/uL (150-450); RED BLOOD COUNT 4.39 10^6/uL (3.72-5.28); RED CELL DISTRIBUTION WIDTH 17.3 % (11.5-14.0); WHITE BLOOD COUNT 6.3 10^3/uL (4.0-10.5)
[2018-02-12 06:26] LABS: ALANINE AMINOTRANSFERASE 18 U/L (9-52); ALBUMIN 4.4 g/dL (3.5-5.0); ALKALINE PHOSPHATASE 90 U/L (38-126); ANION GAP 13 (5-19); ASPARTATE AMINO TRANSFERASE 22 U/L (14-36); BILIRUBIN,DIRECT 0.3 mg/dL (0.0-0.4); BILIRUBIN,TOTAL 1.3 mg/dL (0.2-1.3); BLOOD UREA NITROGEN 15 mg/dL (7-20); CALCIUM 9.7 mg/dL (8.4-10.2); CARBON DIOXIDE 27 mmol/L (22-30); CHLORIDE 108 mmol/L (98-107); GLUCOSE 118 mg/dL (75-110); POTASSIUM 4.4 mmol/L (3.6-5.0); SODIUM 147.7 mmol/L (137-145); TOTAL PROTEIN 7.3 g/dL (6.3-8.2)
[2018-02-12] MEDS: PROMETHAZINE HCL INJ 25 MG/1 ML VIAL IV PRN (06:28)
[2018-02-12] MEDS ORDERED: ROCURONIUM BROMIDE INJ 50 MG/5 ML VIAL IV ONE (07:33)
[2018-02-12] MEDS ORDERED: DEXAMETHASONE SOD PHOSPHATE INJ 4 MG/1 ML VIAL ONE (07:33)
[2018-02-12] MEDS ORDERED: ONDANSETRON HCL INJ/PF 4 MG/2 ML SDV ONE (07:33)
[2018-02-12] MEDS ORDERED: NEOSTIGMINE METHYLSULFATE 10 MG/10 ML VIAL ONE (07:33)
[2018-02-12] MEDS ORDERED: SUCCINYLCHOLINE CHLORIDE INJ 200 MG/10 ML VIAL ONE (07:33)
[2018-02-12] MEDS ORDERED: GLYCOPYRROLATE INJ 0.4 MG/2 ML VIAL ONE (07:33)
[2018-02-12] MEDS ORDERED: MIDAZOLAM 2 MG/2 ML INJ ONE (09:38)
[2018-02-12] MEDS ORDERED: HYDROMORPHONE HCL INJ/PF 2 MG/ML AMPULE ONE (09:38)
[2018-02-12] MEDS ORDERED: EPHEDRINE SULFATE INJ 50 MG/1 ML AMPULE ONE (09:38)
[2018-02-12] MEDS ORDERED: FENTANYL CITRATE INJ/PF 250 MCG/5 ML AMPULE ONE (09:38)
[2018-02-12] MEDS ORDERED: PROPOFOL INJ 200 MG/20 ML VIAL IV ONE (09:39)
[2018-02-12] MEDS ORDERED: ACETAMINOPHEN 100 ML IV ONE (09:39)
[2018-02-12] MEDS: FAMOTIDINE INJ/PF 20 MG/2 ML SDV IV SCH ×2 (09:52→21:51)
[2018-02-12] MEDS ORDERED: BUPIVACAINE HCL 0.25 % INJ/PF (2.5 MG/1 ML) 30 ML VIAL ONE (10:11)
--- NOTE | 2018-02-12 10:18 | PDOC PROGRESS REPORT ---
Subjective Progress Note for:: 02/12/18 Subjective:: Patient still having some right upper quadrant pain. She has been n.p.o. since midnight. Reason For Visit: SYMPTOMATIC CHOLELITHIASIS Pain right upper quadrant Physical Exam Vital Signs: Temp Pulse Resp BP Pulse Ox 98.4 F 93 16 144/78 H 97 02/12/18 07:48 02/12/18 07:48 02/12/18 07:48 02/12/18 07:48 02/12/18 07:48 Intake & Output 02/11/18 02/12/18 02/13/18 06:59 06:59 06:59 Intake Total 120 Balance 120 Weight 100.4 kg General appearance: PRESENT: no acute distress GI/Abdominal exam: PRESENT: other - Some right upper quadrant tenderness with mild guarding no rigidity no peritoneal signs Results Laboratory Results: 02/12/18 06:05 02/12/18 06:05 02/11/18 02/12/18 02/12/18 10:09 06:05 06:05 WBC 6.3 RBC 4.39 Hgb 12.3 Hct 35.6 L MCV 81 MCH 28.0 MCHC 34.4 RDW 17.3 H Plt Count 254 Sodium 147.7 H Potassium 4.4 Chloride 108 H Carbon Dioxide 27 Anion Gap 13 BUN 15 Creatinine 1.10 Est GFR ( Amer) > 60 Est GFR (Non-Af Amer) 50 L Glucose 118 H Calcium 9.7 Total Bilirubin 1.3 AST 22 ALT 18 Alkaline Phosphatase 90 Total Protein 7.3 Albumin 4.4 Urine Color YELLOW Urine Appearance CLEAR Urine pH 7.0 Ur Specific [place] 1.024 Urine Protein 30 H Urine Glucose (UA) 50 H Urine Ketones 20 H Urine Blood NEGATIVE Urine Nitrite NEGATIVE Ur Leukocyte Esterase NEGATIVE Urine WBC (Auto) 1 Urine RBC (Auto) 0 Impressions: Abdomen Ultrasound 02/11/18 07:09 IMPRESSION: GALLSTONES. FATTY INFILTRATION OF THE LIVER. OTHERWISE NORMAL RIGHT UPPER QUADRANT ULTRASOUND. Assessment & Plan - Diagnosis (1) Cholelithiasis and acute cholecystitis without obstruction Is this a current diagnosis for this admission?: Yes Plan: Symptomatic cholelithiasis cholecystitis; no evidence of biliary tract obstruction. Recommendations: 1. Proceed with laparoscopic, possible open cholecystectomy, 1 hour, [facility], general anesthesia. Risk benefits and alternatives of planned procedure with patient including bleeding, infection, bile duct injury, need for additional surgery. 2. She expresses her understanding agrees to proceed. 3. Patient is a Zoroastrianism. She declines blood transfusion, platelet transfusion, but will accept a plasma transfusion if needed. I explained to her the likelihood of her requiring any blood product transfusion was less than 5%. We will respect her wishes.
[2018-02-12] MEDS ORDERED: MORPHINE SULFATE 10 MG/ML INJ IV PRN (11:50)
[2018-02-12] MEDS ORDERED: PROMETHAZINE HCL INJ 25 MG/1 ML VIAL IV PRN ×2 (11:50)
[2018-02-12] MEDS ORDERED: DIPHENHYDRAMINE HCL 50 MG/ML VIAL IV PRN (11:50)
[2018-02-12] MEDS ORDERED: MEPERIDINE HCL/PF INJ 25 MG/1 ML DISP.SYRIN IV PRN (11:50)
[2018-02-12] MEDS ORDERED: FENTANYL CITRATE INJ/PF 100 MCG/2 ML AMPUL IV PRN ×3 (11:50)
[2018-02-12] MEDS ORDERED: OXYCODONE-ACETAMINOPHEN 5-325 MG TABLET PO PRN ×2 (11:50)
--- NOTE | 2018-02-12 12:20 | Operative Report ---
Operative Report DATE OF SURGERY: 02/12/18 PREOPERATIVE DIAGNOSIS: Acute cholecystitis with cholelithiasis POSTOPERATIVE DIAGNOSIS: Same OPERATION: Laparoscopic cholecystectomy SURGEON: LEV BULLOCK ANESTHESIA: GA TISSUE REMOVED OR ALTERED: 1 gallbladder with contents COMPLICATIONS: None ESTIMATED BLOOD LOSS: Scant INTRAOPERATIVE FINDINGS: See below PROCEDURE: After obtaining informed consent, the patient was taken to the operating room. General Anesthesia was induced; the arms were extended, and the abdomen was exposed, and prepped and draped in a sterile fashion. Instrumentation was set up for laparoscopic cholecystectomy. Surgical plan and surgical timeout were conducted. A vertical incision was made above the umbilicus, and a verres needle was inserted uneventfully into the peritoneal cavity. Pneumoperitoneum was established. The verres needle was removed and a 5 mm trocar was inserted and a 5 mm flexible laparoscope was inserted. Visualization of the peritoneal cavity confirmed safe uneventful entry. Under direct visualization 3 additional 5 mm ports were established, one in the subxiphoid position and second in the subcostal position. Visualization of the hepatobiliary anatomy revealed no anatomic variations. There is moderate to marked edema consistent with acute cholecystitis. Gallbladder was aspirated of approximately 70 cc of light green bile. A grasper was placed on the fundus of the gallbladder and the gallbladder is elevated over the right surface of the liver; a second grasper was used to grasp the infundibulum of the gallbladder. The neck of the gallbladder and junction with the cystic duct was dissected out. The Cystic artery was in its usual location medial and cephalad to the cystic duct. The cystic artery was surrounded with a right angle clamp, clipped twice proximally and divided with laparoscopic scissors. We now opened the triangle of Calot by dividing the peritoneal reflection on both the medial and lateral sides of the cystic duct infundibular junction. The critical view was obtained. Photos were obtained. The cystic duct was slightly thicker than average. We now milked the cystic duct of any possible stones, clipped the cystic duct approximately 2 times once distally and divided with scissors. We were not completely satisfied with the positioning of the clips across the cystic duct stump so we plan to revisit this after the gallbladder was removed. The gallbladder was now removed from the undersurface of the liver using hook cautery dissection. Graspers were repositioned and the gallbladder was removed uneventfully from the abdominal cavity through the super umbilical port site incision. The specimen was examined, then passed off to pathology for permanent analysis. Some bile did spill into the peritoneal cavity and this was aspirated. We returned to the peritoneal cavity check for bleeding, and evidence of bile leak, and there was none. We now reinspected the cystic duct and felt that removal of the clips and replacement with a Endoloop was indicated. Clips were removed and a 0 Endoloop was placed across the cystic duct stump securing it satisfactorily. Photos were taken. The clips on the cystic artery were secured . At this point we felt the operation was complete. The subcutaneous tissue was then anesthetized with quarter percent Marcaine Sponge and needle counts are correct. All ports removed under direct visualization pneumoperitoneum evacuated, and 5 mm port wounds closed with 3-0 Vicryl suture, benzoin and Steri-Strips. The patient was extubated, and taken to the recovery room in stable condition.
[2018-02-12] MEDS ORDERED: KETOROLAC TROMETHAMINE 10 MG TABLET PO PRN (12:21)
[2018-02-12] MEDS ORDERED: CEFOXITIN INJ 1 GM VIAL IV ONE (14:16)
[2018-02-12] MEDS: ACETAMINOPHEN INJ/PF 1000 MG/100 ML SDV IV SCH (17:33)
[2018-02-13] MEDS: NORMAL SALINE 1000 ML 1,000 ML IV PRN (00:29)
[2018-02-13] MEDS: ACETAMINOPHEN INJ/PF 1000 MG/100 ML SDV IV SCH ×3 (00:30→13:02)
--- NOTE | 2018-02-13 11:12 | PDOC PROGRESS REPORT ---
Subjective Progress Note for:: 02/13/18 Subjective:: Feels better after surgery. Had some right upper quadrant abdominal pain improved with pain medication. Tolerating liquids well. Reason For Visit: SYMPTOMATIC CHOLELITHIASIS Physical Exam Vital Signs: Temp Pulse Resp BP Pulse Ox 98.5 F 100 20 146/88 H 98 02/13/18 07:47 02/13/18 07:47 02/13/18 07:47 02/13/18 07:47 02/13/18 09:39 Intake & Output 02/12/18 02/13/18 02/14/18 06:59 06:59 06:59 Intake Total 120 2020 Output Total 302 Balance 120 1718 Weight 100.4 kg 105.1 kg General appearance: PRESENT: no acute distress, cooperative Respiratory exam: PRESENT: clear to auscultation sally Cardiovascular exam: PRESENT: RRR GI/Abdominal exam: PRESENT: other - Soft, nondistended, mild right upper quadrant abdominal tenderness without peritoneal signs. Dressings are all intact. Extremities exam: PRESENT: other - No swelling and no tenderness Psychiatric exam: PRESENT: appropriate affect Results Laboratory Results: 02/12/18 06:05 02/12/18 06:05 02/12/18 11:15 Blood Type A POSITIVE Antibody Screen NEGATIVE Impressions: Abdomen Ultrasound 02/11/18 07:09 IMPRESSION: GALLSTONES. FATTY INFILTRATION OF THE LIVER. OTHERWISE NORMAL RIGHT UPPER QUADRANT ULTRASOUND. Assessment & Plan - Diagnosis (1) Cholelithiasis and acute cholecystitis without obstruction Is this a current diagnosis for this admission?: Yes Plan: Status post laparoscopic cholecystectomy. Patient doing well. Will discharge patient home.
--- NOTE | 2018-02-13 11:20 | DISCHARGE SUMMARY E ---
Discharge Summary NAME: TIANNA SAENZ : 1955 AGE: 62Y ADMITTED: 02/11/2018 DISCHARGED: 02/13/2018 DISCHARGE DIAGNOSIS: ACUTE CHOLECYSTITIS. PROCEDURE PERFORMED DURING HOSPITALIZATION: Laparoscopic cholecystectomy performed by Dr. Oscar Ayala on 02/12/2018. HOSPITAL COURSE: The patient was admitted. She underwent the above mentioned surgery. She did well postoperatively. She was feeling much better after the surgery. She has now been discharged to home in good condition. She will follow up with [facility] in 2 weeks. She is encouraged to stay active at home. She may shower tomorrow. She may gradually increase her diet from a liquid diet to a low-fat diet at home. She may resume her home medications. Additional medication is Percocet, 1 p.o. every 4 hours p.r.n. pain. DICTATING PHYSICIAN: VIDAL CASAREZ M.D. [id number] PHY#: [id number] ID: [id number] JOB#: [id number] ACCT: [id number] cc:Marisol FAULKNER M.D. >
[2018-02-13 12:10] VITALS: BP 135/67
[2018-02-13] MEDS: FAMOTIDINE INJ/PF 20 MG/2 ML SDV IV SCH (12:58)
== END 2018-02-13 14:00 | disposition home or self-care (01) ==
LOC: ER 06:29 → INTOOBSV 09:09 → EH 09:09 → 2N 10:22
PROVIDERS: ADMIT Surgery; ATTEND Surgery
PROC: 0FT44ZZ Resection of Gallbladder, Percutaneous Endoscopic Approach (ICD-10-PCS; principal; 2018-02-12 11:30)
DX: K80.12 Calculus of gallbladder with acute and chronic cholecystitis without obstruction (principal); I10 Essential (primary) hypertension; R06.4 Hyperventilation; M19.90 Unspecified osteoarthritis, unspecified site; R06.82 Tachypnea, not elsewhere classified; Z90.710 Acquired absence of both cervix and uterus
CPT/HCPCS: 47562; 93005 ×2; 99285; 96374; 96375; 86900; 86901; 36415 ×2; 86850; 82550; 85025; 85027; 80053 ×2; 81001; 84484; 88304 ×2; 76705; 93010; G0378 ×3; J2250; J3490 ×4; J1100; J3010; J2270; J1170; J2550 ×2; J0330; J2405 ×2; J7030 ×3; J2704; S0028 ×2; J0131 ×2; 790

== ENCOUNTER → 2018-03-14 | Outpatient (CLI) | payer BC ==
--- NOTE | 2018-03-14 12:09 | RADIOLOGY REPORT (SQ) ---
EXAM DESCRIPTION: CT ABD/PELVIS NO ORAL OR IV COMPLETED DATE/TIME: 03/14/2018 11:38 am REASON FOR STUDY: EPIGASTRIC ABD PAIN (R10.13) R10.13 EPIGASTRIC PAIN COMPARISON: Abdominal ultrasound dated 02/11/2018 TECHNIQUE: CT scan of the abdomen and pelvis performed without intravenous or oral contrast. Images reviewed with lung, soft tissue, and bone windows. Reconstructed coronal and sagittal MPR images revi ewed. All images stored on PACS. All CT scanners at this facility use dose modulation, iterative reconstruction, and/or weight based d osing when appropriate to reduce radiation dose to as low as reasonably achievable (ALARA). [facility]: Dose Right [facility]: CareDose [facility]: Dose Right [facility]: Teradose 4D [facility]: Smart Vapps RADIATION DOSE: mGy. LIMITATIONS: None. FINDINGS: LOWER CHEST: No significant findings. No nodules or infiltrates. NON-CONTRASTED LIVER, SPLEEN, ADRENALS: Evaluation limited by lack of IV contrast. No identified sign ificant masses. PANCREAS: No masses. No peripancreatic inflammatory changes. GALLBLADDER: Status post cholecystectomy RIGHT KIDNEY AND URETER: No suspicious masses. Assessment limited by lack of IV contrast. No signif icant calcifications. No hydronephrosis or hydroureter. LEFT KIDNEY AND URETER: No suspicious masses. Assessment limited by lack of IV contrast. No signifi cant calcifications. No hydronephrosis or hydroureter. AORTA AND RETROPERITONEUM: No aneurysm. There is some minimal soft tissue stranding in the central m esenteric fat with associated multiple prominent but nonenlarged mesenteric lymph nodes. This is a n onspecific finding but could be related to edematous or inflammatory changes. This is not a typical location but the possibility of a mesenteric adenitis should be considered. The possibility of a raquel plastic process cannot be completely excluded. BOWEL AND PERITONEAL CAVITY: No obvious masses or inflammatory changes. No free fluid. Few scattered diverticula are identified in the sigmoid colon without CT evidence for diverticulitis P APPENDIX: Normal. PELVIS, BLADDER, AND ABDOMINAL WALL:No abnormal masses. No free fluid. Bladder normal. BONES: Degenerative changes are identified in the lumbar spine OTHER: No other significant finding. IMPRESSION: Minimal soft tissue stranding in the central mesenteric fat as noted above with associat ed prominent but nonenlarged mesenteric lymph nodes. This is a nonspecific finding but could be rela tom to edematous or inflammatory changes. The possibility of a mesenteric adenitis should be conside red as noted above. Possibility of a neoplastic process cannot be excluded. Clinical correlation is recommended. Other findings as noted above COMMENT: Quality ID # [id number]: Final reports with documentation of one or more dose reduction techniques (e.g., Automated exposure control, adjustment of the mA and/or kV according to patient size, use of iterative reconstruction technique) TECHNICAL DOCUMENTATION: JOB ID: [id number] [employer]- All Rights Reserved Reading location - IP/workstation name: [email or web address]
== END ==
LOC: RAD 11:10
PROVIDERS: ATTEND Family Medicine Geriatric Medicine
DX: R10.13 Epigastric pain (principal)
CPT/HCPCS: 74176

== ENCOUNTER → 2018-03-14 | Outpatient (CLI) | payer BC ==
[2018-03-14 12:28] LABS: ABSOLUTE EOSINOPHILS # (AUTO) 0.2 10^3/uL (0.0-0.6); ABSOLUTE LYMPHOCYTES (AUTO) 1.7 10^3/uL (0.5-4.7); ABSOLUTE MONOCYTES (AUTO) 0.3 10^3/uL (0.1-1.4); ABSOLUTE NEUT (AUTO) 2.1 10^3/uL (1.7-8.2); BASOPHILS % (AUTO) 1.1 % (0-2); EOSINOPHILS % (AUTO) 4.9 % (0-6); HEMATOCRIT 37.1 % (36.0-47.0); HEMOGLOBIN 12.8 g/dL (12.0-15.5); LYMPHOCYTES % (AUTO) 38.3 % (13-45); MEAN CORPUSCULAR HEMOGLOBIN 27.9 pg (27.0-33.4); MEAN CORPUSCULAR HGB CONC 34.5 g/dL (32.0-36.0); MEAN CORPUSCULAR VOLUME 81 fl (80-97); PLATELET COUNT 272 10^3/uL (150-450); RED BLOOD COUNT 4.59 10^6/uL (3.72-5.28); RED CELL DISTRIBUTION WIDTH 17.2 % (11.5-14.0); SEGMENTED NEUTROPHILS % (AUTO) 47.7 % (42-78); TOTAL CELLS COUNTED % (AUTO) 100 %; WHITE BLOOD COUNT 4.3 10^3/uL (4.0-10.5)
[2018-03-14 12:49] LABS: AMYLASE 48 U/L (30-110); ANION GAP 15 (5-19); BLOOD UREA NITROGEN 9 mg/dL (7-20); CALCIUM 10.3 mg/dL (8.4-10.2); CARBON DIOXIDE 29 mmol/L (22-30); CHLORIDE 104 mmol/L (98-107); GLUCOSE 97 mg/dL (75-110); LIPASE 67.5 U/L (23-300); POTASSIUM 4.4 mmol/L (3.6-5.0); SODIUM 148.2 mmol/L (137-145)
== END ==
LOC: LAB 12:02
PROVIDERS: ATTEND Family Medicine Geriatric Medicine
DX: R10.13 Epigastric pain (principal)
CPT/HCPCS: 36415; 80048; 82150; 83690; 85025

== ENCOUNTER 2018-03-21 06:10 | Inpatient (IN) | payer BC ==
--- NOTE | 2018-03-21 06:46 | ER Document Report ---
ED GI/ - General Mode of Arrival: Ambulatory Information source: Patient, Relative TRAVEL OUTSIDE OF THE [place] IN LAST 30 DAYS: No <NETTA KEE - Last Filed: 03/21/18 11:05> <JIGNESH SARAVIA - Last Filed: 03/22/18 06:24> - General Chief Complaint: Abdominal Pain Stated Complaint: ABDOMINAL PAIN Time Seen by Provider: 03/21/18 06:45 Notes: Patient is a 62-year-old female that presents to the emergency department today with complaints of generalized abdominal pain. Patient has been seen for abdominal pain several times over the last few months and subsequently had a cholecystectomy 4 weeks ago. Daughter at bedside states the patient's abdominal pain began again 5 days after the cholecystectomy and it has continued to get worse. Daughter states that the patient has lost 14 pounds since surgery because she cannot eat because "all she does is vomit". Patient has seen her surgeon twice since the surgery and was told "it is a slow healing process". Daughter states that surgery is "trying to get her insurance to do an upper scope". Patient had a normal bowel movement last night. Patient denies any fevers. (NETTA KEE) - Related Data Allergies/Adverse Reactions: No Known Allergies Allergy (Verified 03/21/18 13:11) Past Medical History - General Information source: Patient, [facility] Records - Social History Smoking Status: Never Smoker Cigarette use (# per day): No Chew tobacco use (# tins/day): No Frequency of alcohol use: None Drug Abuse: None Lives with: Family Family History: Reviewed & Not Pertinent Patient has suicidal ideation: No Patient has homicidal ideation: No - Past Medical History Cardiac Medical History: Reports: Hx Hypertension Pulmonary Medical History: Reports: Hx COPD Musculoskeltal Medical History: Reports Hx Arthritis Past Surgical History: Reports: Hx Hysterectomy - Immunizations Hx Diphtheria, Pertussis, Tetanus Vaccination: Yes <NETTA KEE - Last Filed: 03/21/18 11:05> Review of Systems - Review of Systems Constitutional: denies: Fever EENT: No symptoms reported Cardiovascular: No symptoms reported Respiratory: No symptoms reported Gastrointestinal: See HPI, Abdominal pain, Vomiting Genitourinary: No symptoms reported Female Genitourinary: No symptoms reported Musculoskeletal: No symptoms reported Skin: No symptoms reported Hematologic/Lymphatic: No symptoms reported Neurological/Psychological: No symptoms reported -: Yes All other systems reviewed and negative <NETTA KEE - Last Filed: 03/21/18 11:05> Physical Exam <NETTA KEE - Last Filed: 03/21/18 11:05> <JIGNESH SARAVIA Nissa - Last Filed: 03/22/18 06:24> - Vital signs Vitals: Pulse Resp BP Pulse Ox 121 H 20 149/118 H 100 03/21/18 06:20 03/21/18 06:20 03/21/18 06:20 03/21/18 06:20 - Notes Notes: Physical Exam: General: Alert, appears in moderate distress, writhing around the bed and moaning non-stop during the entire interaction. HEENT: Normocephalic. Atraumatic. PERRL. Extraocular movements intact. Oropharynx clear. Neck: Supple. Non-tender. Respiratory: No respiratory distress. Clear and equal breath sounds bilaterally. Cardiovascular: Tachycardic, regular rhythm. Abdominal: Epigastric and RUQ tenderness with palpation. No distension. Normal Bowel Sounds. Back: Non-tender. No deformity or step off. Extremities: Moves all four extremities. Upper extremities: Normal inspection. Normal ROM. Lower extremities: Normal inspection. No edema. Normal ROM. Neurological: Normal cognition. AAOx4. Normal speech. Psychological: Normal affect. Normal Mood. Skin: Warm. Dry. Normal color. (NETTA KEE) Course - Laboratory Result Diagrams: 03/21/18 06:35 03/21/18 06:35 <NETTA KEE - Last Filed: 03/21/18 11:05> - Laboratory Result Diagrams: 03/21/18 06:35 03/21/18 06:35 <JIGNESH SARAVIA Nissa - Last Filed: 03/22/18 06:24> - Re-evaluation Re-evalutation: 03/21/18 10:06 [facility], [place], and [facility] and none of them have beds. [facility] has accepted the patient however they have no MedSurg beds 03/21/18 11:[address] Rodriguez who is now at bedside (NETTA KEE) 03/21/18 09:27 Patient labs show elevated lipase and transaminitis concerning for common bile duct obstruction. No GI specialty phone call this hospital. Discussed with surgeon on-call who recommended ERCP which I agree and pending transfer. Maldonado pain his improved with pain medication. Patient afebrile with no white cell count at this time and I feel due to severely to markedly pancreatitis transfer needs to happen today 03/21/18 10:22 Patient accepted at [facility], Dr. Wang. Unsure of when medsurge med available, called 4 different hospitals, no beds at any. Discussed case with surgeon clinical rehabilitation liaison, he will contact local GI to see if they can assist and keep patient local, although GI not clinical rehabilitation liaison. 03/21/18 11:20 Dr. Rodriguez spoke to Dr. Winchester who will perform EGD [facility] (JIGNESH SARAVIA) - Vital Signs Vital signs: Temp Pulse Resp BP Pulse Ox 98.5 F 96 14 118/66 95 03/22/18 03:05 03/22/18 03:05 03/22/18 03:05 03/22/18 03:05 03/22/18 03:05 - Laboratory Laboratory results interpreted by me: 03/21/18 03/21/18 06:35 06:35 RDW 17.8 H Potassium 3.2 L Est GFR (Non-Af Amer) 55 L Glucose 210 H Total Bilirubin 7.2 H Direct Bilirubin 5.1 H AST 524 H ALT 289 H Alkaline Phosphatase 382 H Total Protein 8.9 H Albumin 5.1 H Lipase 62011.9 H Discharge <NETTA KEE - Last Filed: 03/21/18 11:05> - Discharge Admitting Provider: Jennifer Unit Admitted: Medical Floor <JIGNESH SARAVIA - Last Filed: 03/22/18 06:24> - Discharge Clinical Impression: Bile duct obstruction Condition: Fair Disposition: ADMITTED OBSERVATION Scribe Attestation: 03/22/18 06:24 I personally performed the services described documentation, reviewed and edited the documentation which was dictated to describe my presence, and it accurately records my words and actions. (JIGNESH SARAVIA) Scribe Documentation - Scribe Written by Lavelle:: Lavelle Montero, 03/21/2018 0827 acting as scribe for :: Ac <NETTA KEE - Last Filed: 03/21/18 11:05>
[2018-03-21] MEDS ORDERED: MORPHINE SULFATE 10 MG/ML INJ IV ONE ×5 (06:49→16:00)
[2018-03-21] MEDS ORDERED: ONDANSETRON HCL INJ/PF 4 MG/2 ML SDV IV ONE (06:50)
[2018-03-21] MEDS ORDERED: RINGERS SOLUTION,LACTATED 1,000 ML IV ONE ×2 (06:50→09:29)
[2018-03-21 07:06] LABS: ABSOLUTE LYMPHOCYTES (AUTO) 1.7 10^3/uL (0.5-4.7); ABSOLUTE MONOCYTES (AUTO) 0.4 10^3/uL (0.1-1.4); ABSOLUTE NEUT (AUTO) 6.3 10^3/uL (1.7-8.2); BASOPHILS % (AUTO) 0.3 % (0-2); EOSINOPHILS % (AUTO) 0.2 % (0-6); HEMATOCRIT 36.9 % (36.0-47.0); HEMOGLOBIN 13.2 g/dL (12.0-15.5); LYMPHOCYTES % (AUTO) 20.6 % (13-45); MEAN CORPUSCULAR HEMOGLOBIN 28.7 pg (27.0-33.4); MEAN CORPUSCULAR HGB CONC 35.7 g/dL (32.0-36.0); MEAN CORPUSCULAR VOLUME 80 fl (80-97); MONOCYTES % (AUTO) 4.9 % (3-13); PLATELET COUNT 310 10^3/uL (150-450); RED BLOOD COUNT 4.59 10^6/uL (3.72-5.28); RED CELL DISTRIBUTION WIDTH 17.8 % (11.5-14.0); TOTAL CELLS COUNTED % (AUTO) 100 %; WHITE BLOOD COUNT 8.4 10^3/uL (4.0-10.5)
[2018-03-21 07:10] LABS: ALANINE AMINOTRANSFERASE 289 U/L (9-52); ALBUMIN 5.1 g/dL (3.5-5.0); ALKALINE PHOSPHATASE 382 U/L (38-126); ASPARTATE AMINO TRANSFERASE 524 U/L (14-36); BILIRUBIN,DIRECT 5.1 mg/dL (0.0-0.4); BILIRUBIN,TOTAL 7.2 mg/dL (0.2-1.3); BLOOD UREA NITROGEN 10 mg/dL (7-20); CALCIUM 10.1 mg/dL (8.4-10.2); CHLORIDE 103 mmol/L (98-107); GLUCOSE 210 mg/dL (75-110); POTASSIUM 3.2 mmol/L (3.6-5.0); TOTAL PROTEIN 8.9 g/dL (6.3-8.2)
[2018-03-21 07:15] LABS: ANION GAP 19 (5-19); CARBON DIOXIDE 22 mmol/L (22-30); SODIUM 143.8 mmol/L (137-145)
[2018-03-21] MEDS ORDERED: METOCLOPRAMIDE HCL INJ/PF 10 MG/2 ML SDV IV ONE (07:45)
[2018-03-21 07:51] LABS: LIPASE 28109.9 U/L (23-300)
--- NOTE | 2018-03-21 09:27 | RADIOLOGY REPORT (SQ) ---
EXAM DESCRIPTION: U/S ABDOMEN LTD W/DOPPLER COMPLETED DATE/TIME: 03/21/2018 9:10 am REASON FOR STUDY: s/p gallbladder removal on 03/14, abd pain COMPARISON: 02/11/[address] abdomen and pelvis 03/14/2018. TECHNIQUE: Dynamic and static grayscale images acquired of the abdomen and recorded on PACS. Additio nal selected color Doppler and spectral images recorded. LIMITATIONS: None. FINDINGS: PANCREAS: Normal echogenicity without mass suggested. No surrounding fluid. Duct distend ed, just under 4 mm. LIVER: No masses. Echotexture normal. LIVER VASCULATURE: Normal directional flow of the main portal vein and hepatic veins. GALLBLADDER: Surgically absent. No regional fluid collections. ULTRASOUND-DETECTED GUZMAN'S SIGN: Not applicable. INTRAHEPATIC DUCTS AND COMMON DUCT: Central intrahepatic duct prominence. Common duct measures up to 1.4 cm proximally. As assessed, no duct stones. INFERIOR VENA CAVA: Normal flow. AORTA: No aneurysm. RIGHT KIDNEY: Normal size. Normal echogenicity. No solid or suspicious masses. No hydronephrosis. No calcifications. PERITONEAL AND RIGHT PLEURAL SPACE: No ascites or effusions. OTHER: No other significant findings. IMPRESSION: 1. Status post cholecystectomy. No regional fluid collections. There is duct prominen ce. This includes intrahepatic, common and pancreatic. No duct stones are appreciated as assessed. TECHNICAL DOCUMENTATION: JOB ID: [id number] [employer]- All Rights Reserved Reading location - IP/workstation name: [email or web address]
[2018-03-21] MEDS ORDERED: DIPHENHYDRAMINE HCL 50 MG/ML VIAL IV ONE (11:13)
--- NOTE | 2018-03-21 13:50 | PDOC H&P ---
History of Present Illness Admission Date/PCP: 03/21/18 11:32 RENALDO YEBOAH MD Patient complains of: abdominal pains History of Present Illness: TIANNA SAENZ is a 62 year old female who had laparoscopic cholecystectomy 02/[address] Ayala. Patient claims she has been having on and off abdominal pains with nausea. Came in today for severe RUQ pains. Laboratory showed elevated LFT's and lipase. Consulted GI Dr Winchester for ERCP. Past Medical History Cardiac Medical History: Reports: Hypertension Pulmonary Medical History: Reports: Chronic Obstructive Pulmonary Disease (COPD) Musculoskeltal Medical History: Reports: Arthritis Past Surgical History Past Surgical History: Reports: Cholecystectomy - lap mynor 02/12/18, Hysterectomy Social History Lives with: Family Smoking Status: Never Smoker Frequency of Alcohol Use: None Hx Recreational Drug Use: No Drugs: None Hx Prescription Drug Abuse: No - Advance Directive Resuscitation Status: Full Code Family History Family History: Reviewed & Not Pertinent Parental Family History Reviewed: Yes Children Family History Reviewed: No Sibling(s) Family History Reviewed.: No Medication/Allergy Home Medications: Hydrochlorothiazide 25 mg PO DAILY 02/11/18 Metoprolol Tartrate [Lopressor 25 mg Tablet] 12.5 mg PO Q12 02/11/18 Multivit-Minerals/Folic Acid [One-A-Day Women Vitacraves] 200 mcg PO DAILY 03/21 Allergies/Adverse Reactions: No Known Allergies Allergy (Verified 03/21/18 13:11) Review of Systems All systems: reviewed and no additional remarkable complaints except as stated - abdominal pains with nausea Physical Exam Vital Signs: Temp Pulse Resp BP Pulse Ox 98.2 F 101 H 22 H 170/89 H 94 03/21/18 12:21 03/21/18 09:22 03/21/18 13:01 03/21/18 13:00 03/21/18 13:01 General appearance: PRESENT: mild distress Eye exam: PRESENT: scleral icterus Mouth exam: PRESENT: moist Neck exam: PRESENT: full ROM Respiratory exam: PRESENT: clear to auscultation sally Cardiovascular exam: PRESENT: RRR Pulses: PRESENT: normal radial pulses Vascular exam: PRESENT: normal capillary refill GI/Abdominal exam: PRESENT: soft, tenderness - RUQ Rectal exam: PRESENT: deferred Extremities exam: PRESENT: full ROM Musculoskeletal exam: PRESENT: ambulatory Neurological exam: PRESENT: alert, oriented to person, oriented to place, oriented to time, oriented to situation Psychiatric exam: PRESENT: anxious Skin exam: PRESENT: normal color, warm Results Impressions: Abdomen Ultrasound 03/21/18 06:48 IMPRESSION: 1. Status post cholecystectomy. No regional fluid collections. There is duct prominence. This includes intrahepatic, common and pancreatic. No duct stones are appreciated as assessed. Assessment & Plan - Diagnosis (1) Elevated liver function tests Is this a current diagnosis for this admission?: Yes (2) Elevated lipase Is this a current diagnosis for this admission?: Yes - Time Time Spent: 30 to 50 Minutes - Inpatient Certification Medical Necessity: Failure to Improve With Outpatient Therapy, Need Close Monitoring Due to Risk of Patient Decompensation, Need For IV Fluids, Need For Continuous Telemetry Monitoring, Need for Pain Control, Need for IV Antibiotics , Need for Surgery, Risk of Complication if Not Cared For in Hospital - Plan Summary Plan Summary: NPO Hydrate IV antibiotics For ERCP c/o Dr Winchester
[2018-03-21] MEDS ORDERED: MORPHINE SULFATE 10 MG/ML INJ IV PRN (13:54)
[2018-03-21] MEDS: NORMAL SALINE 1000 ML 1,000 ML IV PRN ×2 (15:09→23:10)
[2018-03-21] MEDS: PIPERACILLIN SODIUM/TAZOBACTAM 3.375 GM in NORMAL SALINE 100 ML IV SCH (18:03)
[2018-03-21] MEDS ORDERED: MORPHINE SULFATE 10 MG/ML INJ ONE (18:53)
[2018-03-21] MEDS: MORPHINE SULFATE 10 MG/ML INJ IV PRN (23:04)
[2018-03-22] MEDS: PIPERACILLIN SODIUM/TAZOBACTAM 3.375 GM in NORMAL SALINE 100 ML IV SCH ×4 (00:34→18:07)
[2018-03-22] MEDS: NORMAL SALINE 1000 ML 1,000 ML IV PRN ×2 (06:05→13:44)
[2018-03-22] MEDS: MORPHINE SULFATE 10 MG/ML INJ IV PRN ×3 (06:18→20:54)
[2018-03-22 07:03] LABS: INTERNATIONAL RATION (INR) 1.02; PROTHROMBIN TIME 13.9 SEC (11.4-15.4)
[2018-03-22 07:04] LABS: ALANINE AMINOTRANSFERASE 225 U/L (9-52); ALBUMIN 3.9 g/dL (3.5-5.0); ALKALINE PHOSPHATASE 281 U/L (38-126); ASPARTATE AMINO TRANSFERASE 252 U/L (14-36); BILIRUBIN,DIRECT 1.7 mg/dL (0.0-0.4); TOTAL PROTEIN 6.6 g/dL (6.3-8.2)
[2018-03-22 07:19] LABS: BILIRUBIN,TOTAL 3.3 mg/dL (0.2-1.3)
[2018-03-22 07:20] LABS: LIPASE 2988.5 U/L (23-300)
[2018-03-22] MEDS ORDERED: ONDANSETRON 4 MG TAB.RAPDIS PO PRN (09:13)
[2018-03-22] MEDS: PROMETHAZINE HCL INJ 25 MG/1 ML VIAL IV PRN ×2 (09:33→20:54)
[2018-03-22 10:46] LABS: ANION GAP 15 (5-19); BLOOD UREA NITROGEN 15 mg/dL (7-20); CALCIUM 8.9 mg/dL (8.4-10.2); CARBON DIOXIDE 23 mmol/L (22-30); CHLORIDE 108 mmol/L (98-107); GLUCOSE 98 mg/dL (75-110); SODIUM 145.5 mmol/L (137-145)
[2018-03-22] MEDS: HYDROXYZINE HCL 10 MG TABLET PO SCH ×2 (11:28→20:03)
--- NOTE | 2018-03-22 16:14 | PDOC PROGRESS REPORT ---
Subjective Progress Note for:: 03/22/18 Subjective:: This is a 62-year-old female with common bile duct obstruction, presumably from a retained common bile duct stone. She is several weeks status post cholecystectomy. Her bilirubin was 7 upon arrival. She also has elevation of her amylase and lipase, consistent with biliary pancreatitis. Patient complains of itching, nausea, abdominal pain, fatigue, malaise, and headache today. She denies any shortness of breath, dizziness, orthostasis, or chest pain. Reason For Visit: BILE DUCT OBSTRUCTION Physical Exam Vital Signs: Temp Pulse Resp BP Pulse Ox 98.5 F 93 16 159/81 H 100 03/22/18 15:38 03/22/18 15:38 03/22/18 15:38 03/22/18 15:38 03/22/18 15:38 Intake & Output 03/21/18 03/22/18 03/23/18 06:59 06:59 06:59 Output Total 1600 Balance -1600 General appearance: PRESENT: mild distress Head exam: PRESENT: atraumatic, normocephalic Eye exam: PRESENT: EOMI, PERRLA Mouth exam: PRESENT: neck supple Neck exam: ABSENT: tenderness, thyromegaly, tracheal deviation Respiratory exam: PRESENT: clear to auscultation sally. ABSENT: accessory muscle use Cardiovascular exam: PRESENT: RRR Pulses: PRESENT: normal radial pulses Vascular exam: PRESENT: normal capillary refill. ABSENT: pallor GI/Abdominal exam: PRESENT: soft, tenderness - Epigastric Rectal exam: PRESENT: deferred Extremities exam: ABSENT: clubbing Neurological exam: PRESENT: alert, awake, oriented to person, oriented to place , oriented to time, oriented to situation, CN II-XII grossly intact. ABSENT: motor sensory deficit Psychiatric exam: PRESENT: anxious. ABSENT: agitated Skin exam: PRESENT: jaundice. ABSENT: cyanosis Results Laboratory Results: 03/22/18 06:35 03/22/18 03/22/18 06:35 06:35 Sodium 145.5 H Potassium 4.0 Chloride 108 H Carbon Dioxide 23 Anion Gap 15 BUN 15 Creatinine 1.29 H Est GFR ( Amer) 51 L Est GFR (Non-Af Amer) 42 L Glucose 98 Calcium 8.9 Total Bilirubin 3.3 H D AST 252 H ALT 225 H Alkaline Phosphatase 281 H Total Protein 6.6 Albumin 3.9 Lipase 2988.5 H Impressions: Abdomen Ultrasound 03/21/18 06:48 IMPRESSION: 1. Status post cholecystectomy. No regional fluid collections. There is duct prominence. This includes intrahepatic, common and pancreatic. No duct stones are appreciated as assessed. Assessment & Plan - Diagnosis (1) Biliary acute pancreatitis Qualifiers: Acute pancreatitis complication: no infection or necrosis Qualified Code(s) : K85.10 - Biliary acute pancreatitis without necrosis or infection Is this a current diagnosis for this admission?: Yes (2) Biliary obstruction Is this a current diagnosis for this admission?: Yes - Plan Summary Plan Summary: This is a 62-year-old female admitted with biliary obstruction and biliary pancreatitis. I believe she has retained common bile duct stone. She is scheduled for ERCP today. Hopefully this will resolve her symptoms. Continue supportive care. Await ERCP results.
[2018-03-22] MEDS ORDERED: FENTANYL CITRATE INJ/PF 100 MCG/2 ML AMPUL ONE (17:12)
[2018-03-22] MEDS ORDERED: PROPOFOL INJ 200 MG/20 ML VIAL IV ONE (17:12)
[2018-03-22] MEDS ORDERED: MIDAZOLAM 2 MG/2 ML INJ ONE (17:12)
[2018-03-22] MEDS ORDERED: EPINEPHRINE INJ 1 MG/10 ML DISP.SYRIN ONE (17:16)
[2018-03-22] MEDS ORDERED: GLUCAGON,HUMAN RECOMB 1 MG INJ ONE (17:16)
[2018-03-22] MEDS ORDERED: LIDOCAINE 2% INJ-PF (20 MG/ML) 10 ML AMPUL ONE (17:18)
[2018-03-22] MEDS ORDERED: ONDANSETRON HCL INJ/PF 4 MG/2 ML SDV IV PRN (18:32)
[2018-03-22] MEDS ORDERED: PROMETHAZINE HCL INJ 25 MG/1 ML VIAL IV PRN ×2 (18:32)
[2018-03-22] MEDS ORDERED: DIPHENHYDRAMINE HCL 50 MG/ML VIAL IV PRN (18:32)
[2018-03-22] MEDS ORDERED: FENTANYL CITRATE INJ/PF 100 MCG/2 ML AMPUL IV PRN ×3 (18:32)
--- NOTE | 2018-03-22 18:41 | Operative Report ---
Operative Report DATE OF SURGERY: 03/22/18 Operative Report: Pre-op diagnosis: Gallstone pancreatitis with jaundice Post-op diagnosis: 1. Common bile duct stone 2. Dilated biliary tree Surgery: ERCP with sphincterotomy and balloon stone extraction Medications: As per anesthesia Tissue removed: None Procedure: After informed consent obtained from patient, the throat was sprayed with Hurricane and conscious sedation was achieved. The ERCP endoscope was then inserted into the esophagus blindly and advanced into the stomach. The duodenum was entered and the ampulla was identified. Using the triple-lumen sphincterotomy catheter the common bile duct was freely cannulated. A cholangiogram was obtained which showed possible filling defect in the distal common bile duct. The common bile duct and intrahepatic ducts did appear dilated. A good sized sphincterotomy was then performed using the endocut mode. The catheter was removed over the guidewire before a 9-12 mm balloon catheter was inserted. The balloon was inflated to 12 mm in the proximal common bile duct and pulled down the duct. A small yellow multifaceted stone was extracted. The duct was swept one more time. A balloon occlusion cholangiogram was normal. The pancreatic duct was intentionally not cannulated. Patient tolerated procedure well. Findings Common bile duct: Dilated. Small yellow stone extracted Intrahepatic ducts: Normal Pancreatic duct: Not cannulated Plan: Follow liver function tests and start clear liquids in the morning if tolerated. OPERATION: .
[2018-03-23] MEDS: PIPERACILLIN SODIUM/TAZOBACTAM 3.375 GM in NORMAL SALINE 100 ML IV SCH ×5 (01:25→23:13)
[2018-03-23 05:36] LABS: ALANINE AMINOTRANSFERASE 171 U/L (9-52); ALBUMIN 3.6 g/dL (3.5-5.0); ALKALINE PHOSPHATASE 230 U/L (38-126); ANION GAP 13 (5-19); ASPARTATE AMINO TRANSFERASE 132 U/L (14-36); BILIRUBIN,TOTAL 1.7 mg/dL (0.2-1.3); BLOOD UREA NITROGEN 14 mg/dL (7-20); CALCIUM 9.1 mg/dL (8.4-10.2); CARBON DIOXIDE 26 mmol/L (22-30); CHLORIDE 111 mmol/L (98-107); GLUCOSE 112 mg/dL (75-110); LIPASE 171.1 U/L (23-300); POTASSIUM 4.7 mmol/L (3.6-5.0); SODIUM 150.4 mmol/L (137-145); TOTAL PROTEIN 6.4 g/dL (6.3-8.2)
--- NOTE | 2018-03-23 09:09 | RADIOLOGY REPORT (SQ) ---
EXAM DESCRIPTION: ENDO CATH/BILIARY DUCT; NO CHG FLUORO COMPLETED DATE/TIME: 03/22/2018 7:15 pm REASON FOR STUDY: ERCP COMPARISON: Right upper quadrant ultrasound 02/11/2018, 03/21/2018 CT abdomen pelvis 03/14/2018 FLUOROSCOPY TIME: 1.7 minutes 7 digital radiographic images saved to PACS. TECHNIQUE: Intra-operative images acquired during surgical procedure to evaluate progress. NUMBER OF IMAGES: 7 digital radiographic images saved to pac's. LIMITATIONS: None. FINDINGS: Intra procedural C-arm images during ERCP. Images demonstrate injection of contrast into the distal common duct and filling defects worrisome for distal common duct stones. Common hepatic duct is same caliber as the endoscope, indicating biliary ductal dilatation. Final films demonstrate sweeping of the common bile duct with a balloon tipped catheter. Clips post cholecystectomy IMPRESSION: Intra procedural imaging and fluoro during ERCP. Please see the operative report for fu rther details COMMENT: Quality ID 145: Final reports for procedures using fluoroscopy that document radiation exp osure indices, or exposure time and number of fluorographic images (if radiation exposure indices are not available) Please consult full operative report of the attending physician for description of the procedure. TECHNICAL DOCUMENTATION: JOB ID: [id number] [employer]- All Rights Reserved Reading location - IP/workstation name: [email or web address]
--- NOTE | 2018-03-23 09:09 | RADIOLOGY REPORT (SQ) ---
EXAM DESCRIPTION: ENDO CATH/BILIARY DUCT; NO CHG FLUORO COMPLETED DATE/TIME: 03/22/2018 7:15 pm REASON FOR STUDY: ERCP COMPARISON: Right upper quadrant ultrasound 02/11/2018, 03/21/2018 CT abdomen pelvis 03/14/2018 FLUOROSCOPY TIME: 1.7 minutes 7 digital radiographic images saved to PACS. TECHNIQUE: Intra-operative images acquired during surgical procedure to evaluate progress. NUMBER OF IMAGES: 7 digital radiographic images saved to pac's. LIMITATIONS: None. FINDINGS: Intra procedural C-arm images during ERCP. Images demonstrate injection of contrast into the distal common duct and filling defects worrisome for distal common duct stones. Common hepatic duct is same caliber as the endoscope, indicating biliary ductal dilatation. Final films demonstrate sweeping of the common bile duct with a balloon tipped catheter. Clips post cholecystectomy IMPRESSION: Intra procedural imaging and fluoro during ERCP. Please see the operative report for fu rther details COMMENT: Quality ID 145: Final reports for procedures using fluoroscopy that document radiation exp osure indices, or exposure time and number of fluorographic images (if radiation exposure indices are not available) Please consult full operative report of the attending physician for description of the procedure. TECHNICAL DOCUMENTATION: JOB ID: [id number] [employer]- All Rights Reserved Reading location - IP/workstation name: [email or web address]
[2018-03-23] MEDS: HYDROCHLOROTHIAZIDE 25 MG TABLET PO SCH (09:49)
[2018-03-23] MEDS: HYDROXYZINE HCL 10 MG TABLET PO SCH ×2 (09:49→17:41)
[2018-03-23] MEDS: ACETAMINOPHEN 325 MG TABLET PO PRN ×2 (09:49→20:59)
[2018-03-23] MEDS: METOPROLOL TARTRATE 25 MG TABLET PO SCH ×2 (09:49→20:59)
[2018-03-23] MEDS: MULTIVITAMIN TABLET PO SCH (09:49)
[2018-03-23] MEDS ORDERED: FOLIC ACID PO SCH (10:00)
[2018-03-23] MEDS ORDERED: MULTIVIT MINERALS PO SCH (10:00)
[2018-03-23] MEDS ORDERED: [UNRECOGNIZED DRUG - OTHER] PO SCH (10:00)
[2018-03-23] MEDS ORDERED: SUCCINYLCHOLINE CHLORIDE INJ 200 MG/10 ML VIAL ONE (14:46)
[2018-03-23] MEDS ORDERED: METOCLOPRAMIDE HCL INJ/PF 10 MG/2 ML SDV ONE (14:46)
--- NOTE | 2018-03-23 22:23 | PDOC PROGRESS REPORT ---
Subjective Progress Note for:: 03/23/18 Subjective:: Dramatic decrese in abdominal pains post ERCP and removal of CBD stone. Reason For Visit: BILE DUCT OBSTRUCTION,GALLSTONE PANCREATITIS Physical Exam Vital Signs: Temp Pulse Resp BP Pulse Ox 99.5 F 94 16 135/69 H 99 03/23/18 19:50 03/23/18 19:50 03/23/18 19:50 03/23/18 19:50 03/23/18 19:50 Intake & Output 03/22/18 03/23/18 03/24/18 06:59 06:59 06:59 Intake Total 5825 684 Output Total 1600 2200 Balance -1600 3625 684 Weight 93.3 kg Exam: abd is soft and non tender Results Laboratory Results: 03/23/18 04:36 03/23/18 04:36 Sodium 150.4 H Potassium 4.7 Chloride 111 H Carbon Dioxide 26 Anion Gap 13 BUN 14 Creatinine 1.09 Est GFR ( Amer) > 60 Est GFR (Non-Af Amer) 51 L Glucose 112 H Calcium 9.1 Total Bilirubin 1.7 H AST 132 H ALT 171 H Alkaline Phosphatase 230 H Total Protein 6.4 Albumin 3.6 Lipase 171.1 Impressions: Abdomen Ultrasound 03/21/18 06:48 IMPRESSION: 1. Status post cholecystectomy. No regional fluid collections. There is duct prominence. This includes intrahepatic, common and pancreatic. No duct stones are appreciated as assessed. Catheter Placement 03/22/18 00:00 IMPRESSION: Intra procedural imaging and fluoro during ERCP. Please see the operative report for further details Fluoroscopy 03/22/18 00:00 IMPRESSION: Intra procedural imaging and fluoro during ERCP. Please see the operative report for further details Assessment & Plan - Diagnosis (1) Elevated liver function tests Is this a current diagnosis for this admission?: Yes (2) Elevated lipase Is this a current diagnosis for this admission?: Yes - Time Time Spent with patient: 15-24 minutes - Plan Summary Plan Summary: Recheck LFT's in am prior to discharge. Continue soft diet and antibiotics
[2018-03-24 05:12] LABS: ALANINE AMINOTRANSFERASE 119 U/L (9-52); ALBUMIN 3.5 g/dL (3.5-5.0); ALKALINE PHOSPHATASE 192 U/L (38-126); ANION GAP 13 (5-19); ASPARTATE AMINO TRANSFERASE 61 U/L (14-36); BILIRUBIN,DIRECT 0.8 mg/dL (0.0-0.4); BILIRUBIN,TOTAL 1.2 mg/dL (0.2-1.3); BLOOD UREA NITROGEN 11 mg/dL (7-20); CALCIUM 8.7 mg/dL (8.4-10.2); CARBON DIOXIDE 27 mmol/L (22-30); CHLORIDE 107 mmol/L (98-107); GLUCOSE 93 mg/dL (75-110); SODIUM 147.1 mmol/L (137-145); TOTAL PROTEIN 6.1 g/dL (6.3-8.2)
[2018-03-24 05:26] LABS: POTASSIUM 3.7 mmol/L (3.6-5.0)
[2018-03-24] MEDS: PIPERACILLIN SODIUM/TAZOBACTAM 3.375 GM in NORMAL SALINE 100 ML IV SCH (06:07)
[2018-03-24] MEDS: HYDROCHLOROTHIAZIDE 25 MG TABLET PO SCH (09:26)
[2018-03-24] MEDS: METOPROLOL TARTRATE 25 MG TABLET PO SCH (09:27)
[2018-03-24] MEDS: HYDROXYZINE HCL 10 MG TABLET PO SCH (09:27)
[2018-03-24] MEDS: MULTIVITAMIN TABLET PO SCH (09:28)
[2018-03-24 11:31] VITALS: BP 161/81
--- NOTE | 2018-03-25 04:55 | DISCHARGE SUMMARY E ---
Discharge Summary NAME: TIANNA SAENZ : 1955 AGE: 62Y ADMITTED: 03/21/2018 DISCHARGED: 03/24/2018 FINAL DIAGNOSIS: RETAINED COMMON BILE DUCT STONE. PROCEDURE: Endoscopic retrograde cholangiopancreatography with sphincterotomy done by Dr. Winchester on 03/22/2018. HOSPITAL COURSE: This is a 62-year-old female, who underwent laparoscopic cholecystectomy around 3-4 weeks ago. Postoperatively, the patient complained of off and on right upper quadrant pains. She was seen in the emergency room on 03/21/2018 and her LFTs were noted to be elevated. She was then admitted and placed on IV antibiotics and Dr. Winchester subsequently did ERCP with sphincterotomy on 03/22/2018. Postoperatively, her liver functions gradually improved as far as the lipase. The lipase came back to normal the day after the ERCP and LFTs are almost back to normal on the day of discharge. The patient tolerating regular diet well on discharge. The patient would like to follow up with Dr. Winchester. DICTATING PHYSICIAN: GLADYS ARANDA M.D. [id number] PHY#: [id number] ID: [id number] JOB#: [id number] ACCT: [id number] cc:GLADYS ARANDA M.D. >
--- NOTE | 2018-04-05 21:56 | CONSULTATION REPORT E ---
Consultation Report NAME: TIANNA SAENZ : 1955 AGE: 62Y DATE: 03/21/2018 532 A TO: JAMIN RODRIGUEZ M.D. FROM: GLADYS ARANDA M.D. Requesting Physician HISTORY OF PRESENT ILLNESS: This is a 62-year-old patient admitted with abdominal pain, jaundice, and pancreatitis. Her lipase was 28,000. She has been having recurrent abdominal pain for at least the last 7-10 days. She was seen in the Emergency Room on 03/14/2018 when her lipase was 67. There was no LFT done at that time. She had a CT scan of her abdomen on 03/14/2018 that was unremarkable. On admission this time, an ultrasound was performed and this showed prominence of the biliary tree but no stones were identified. She had a cholecystectomy in January of this year. She has no previous history of liver disease or pancreatitis. PAST MEDICAL HISTORY: 1. Hypertension. 2. COPD. 3. Arthritis. PAST SURGICAL HISTORY: 1. Cholecystectomy. 2. Hysterectomy. ALLERGIES: None. SOCIAL HISTORY: Noncontributory. REVIEW OF SYSTEMS: Other than the above, is noncontributory. PHYSICAL EXAMINATION: GENERAL: Shows a lady in no distress. She is jaundiced. HEENT: No pallor but she is jaundiced. Oropharynx normal. NECK: No bruit. No JVD. CHEST: No deformity. LUNGS: Clear. ABDOMEN: Soft and tender in the epigastrium and the right upper quadrant. Liver and spleen not palpable. Bowel sounds normal. NEUROLOGIC: Grossly nonfocal. EXTREMITIES: No edema. DIAGNOSTICS: Her laboratory tests showed a bilirubin of 7, *------* of 5, AST 524, ALT 289, alkaline phosphatase 282, lipase of 28,000. CBC was normal. INR was 1.02. ASSESSMENT AND PLAN: Acute pancreatitis and jaundice. I suspect she has a retained common bile duct stone. The need for an ERCP was explained to the patient and she is in agreement. She will continue with pain control and IV fluids for now and hopefully, we can do the ERCP the next day. DICTATING PHYSICIAN: JAMIN RODRIGUEZ M.D. [id number] Y#: [id number] ID: [id number] JOB#: [id number] ACCT: [id number] cc:JAMIN RODRIGUEZ M.D. >
== END 2018-03-24 12:02 | disposition home or self-care (01) | DRG 438 ==
LOC: ER 06:10 → EH 11:32 → OBSVTOIN 11:32 → 2N 13:12 → 5 03-22 17:43
PROVIDERS: ADMIT Surgery; ATTEND Surgery
PROC: 0F798ZZ Dilation of Common Bile Duct, Via Natural or Artificial Opening Endoscopic (ICD-10-PCS; principal; 2018-03-22 18:00)
PROC: BF101ZZ Fluoroscopy of Bile Ducts using Low Osmolar Contrast (ICD-10-PCS; 2018-03-22 18:00)
DX: K85.10 Biliary acute pancreatitis without necrosis or infection (principal); K83.1 Obstruction of bile duct; I10 Essential (primary) hypertension; J44.9 Chronic obstructive pulmonary disease, unspecified; M19.90 Unspecified osteoarthritis, unspecified site; Z90.49 Acquired absence of other specified parts of digestive tract; Z90.710 Acquired absence of both cervix and uterus
CPT/HCPCS: 36415; 43262; 43264; 732; 74328; 76705; 80048; 80053; 80076; 83690; 85025; 85610; 93976; 96361; 96374; 96375; 96376; 99285; J0171; J0330; J1200; J1610; J2250; J2270; J2543; J2550; J2704; J2765; J3010; J3490; J7030; J7120

== ENCOUNTER → 2018-04-10 | Outpatient (CLI) | payer BC ==
--- NOTE | 2018-04-10 15:43 | RADIOLOGY REPORT (SQ) ---
EXAM DESCRIPTION: CT ABDOMEN COMBO COMPLETED DATE/TIME: 04/10/2018 2:17 pm REASON FOR STUDY: R10.13 EPIGASTRIC PAIN K85.10 BILIARY ACUTE PANCREATITIS WITHOUT NECROSIS O R10.13 EPIGASTRIC PAIN K85.10 BILIARY ACUTE PANCREATITIS WITHOUT NECROSIS OR INFECT COMPARISON: Abdominal ultrasound 02/11/2018 CT abdomen pelvis 03/14/2018 TECHNIQUE: CT scan of the abdomen performed with and without intravenous contrast, and without oral contrast. Contrasted imaging performed using helical scanning technique with dynamic intravenous cont rast injection. Images reviewed with lung, soft tissue, and bone windows. Reconstructed coronal and s agittal MPR images reviewed. Delayed images for evaluation of the urinary system also acquired and ev aluated. All images stored on PACS. All CT scanners at this facility use dose modulation, iterative reconstruction, and/or weight based d osing when appropriate to reduce radiation dose to as low as reasonably achievable (ALARA). [facility]: Dose Right [facility]: CareDose [facility]: Dose Right [facility]: Teradose 4D [facility]: [employer] Journey CONTRAST TYPE AND DOSE: contrast/concentration: Isovue 370.00 mg/ml; Total Contrast Delivered: 56.0 ml; Total Saline Delivered: 80.0 ml RENAL FUNCTION: Creatinine 1.0 RADIATION DOSE: CT Rad equipment meets quality standard of care and radiation dose reduction techniq ues were employed. CTDIvol: 15.1 - 19.7 mGy. DLP: 2393 mGy-cm.. LIMITATIONS: None. FINDINGS: NONCONTRASTED IMAGING: No significant renal or bladder calcifications. No other significan t organ calcifications. POSTCONTRASTED IMAGING: LOWER CHEST: No significant findings. No nodules or infiltrates. LIVER: Normal size. No masses. No dilated ducts. SPLEEN: Normal size. No focal lesions. PANCREAS: No masses. No significant calcifications. No adjacent inflammation or peripancreatic fluid collections. Pancreatic duct not dilated. GALLBLADDER: Surgically absent ADRENAL GLANDS: No significant masses or asymmetry. RIGHT KIDNEY AND URETER: No solid masses. No significant calcifications. No hydronephrosis or hyd roureter. LEFT KIDNEY AND URETER: No solid masses. No significant calcifications. No hydronephrosis or hydr oureter. AORTA AND VESSELS: No aneurysm. No dissection. Renal arteries, SMA, celiac without stenosis. RETROPERITONEUM: No retroperitoneal adenopathy, hemorrhage or masses. BOWEL AND PERITONEAL CAVITY: No free intraperitoneal air or fluid in the field of view. No oral cont rast. Scattered colonic diverticuli without CT signs of acute diverticulitis. No CT evidence of bow el obstruction. APPENDIX: Not in the field of view ABDOMINAL WALL: No masses. No hernias. BONES: No significant or acute findings. OTHER: No other significant finding. IMPRESSION: No CT evidence of peripancreatic inflammation or pseudocyst. No primary pancreatic nodu le or mass. Post cholecystectomy Colonic diverticulosis without CT evidence of acute diverticulitis TECHNICAL DOCUMENTATION: JOB ID: [id number] Quality ID # [id number]: Final reports with documentation of one or more dose reduction techniques (e.g., Au tomated exposure control, adjustment of the mA and/or kV according to patient size, use of iterative reconstruction technique) 2010 [employer]- All Rights Reserved Reading location - IP/workstation name: [email or web address]
== END ==
LOC: RAD 13:22
PROVIDERS: ATTEND Internal Medicine Gastroenterology
DX: K85.10 Biliary acute pancreatitis without necrosis or infection (principal); R10.13 Epigastric pain
CPT/HCPCS: 74170; 82565

== ENCOUNTER → 2018-06-22 | Outpatient (CLI) | payer BC ==
--- NOTE | 2018-06-22 10:25 | WOMENS IMAGING REPORT ---
EXAM DESCRIPTION: BILAT SCREENING MAMMO W/CAD COMPLETED DATE/TIME: 06/22/2018 10:03 am REASON FOR STUDY: BILATERAL SCREENING MAMMO/Z12.31 Z12.31 ENCNTR SCREEN MAMMOGRAM FOR MALIGNANT SATISH PLASM OF [place] COMPARISON: 07/23/2016. TECHNIQUE: Standard craniocaudal and mediolateral oblique views of each breast recorded using Vaximma l acquisition. LIMITATIONS: None. FINDINGS: Findings present which are benign by mammographic criteria. No suspicious masses, calcifi cations or architectural distortion. Pertinent benign findings: Stable benign calcifications. Small circumscribed masses in the lateral l eft breast. Read with the assistance of CAD. .[facility] - R2 Cenova Version 1.3 .[facility] - R2 Cenova Version 1.3 .[facility] - R2 Cenova Version 2.4 .[facility] Cenova Version 2.4 .[facility] - R2 Medication Aide Version 9.2 Benign mammographic findings may include one or more of the following: Smooth masses, popcorn/rim/co arse calcifications, asymmetries, post-procedure changes, and lesions with long-standing stability. IMPRESSION: BENIGN MAMMOGRAPHIC FINDINGS. BIRADS 2 BREAST DENSITY: c. The breasts are heterogeneously dense, which may obscure small masses. BIRAD: 2 BENIGN FINDING(S) RECOMMENDATION: ROUTINE SCREENING COMMENT: The patient has been notified of the results by letter per SA requirements. Additional no tification policies are in place for contacting patient with suspicious or incomplete findings. Quality ID #[id number]: The [employer] recommends an annual screening mammogram for women aged 40 years or over. This facility utilizes a reminder system to ensure that all patients receive reminder letters, and/or direct phone calls for appointments. This includes reminders for routine scr eening mammograms, diagnostic mammograms, or other Breast Imaging Interventions when appropriate. Th is patient will be placed in the appropriate reminder system. The [employer] (ACR) has developed recommendations for screening MRI of the breast s in certain patient populations, to be used in conjunction with mammography. Breast MRI surveillanc e may be appropriate for women with more than 20% lifetime risk of developing breast cancer as deter mined by genetic testing, significant family history of the disease, or history of mantle radiation f or Hodgkins Disease. ACR Practice Guidelines 2008. TECHNICAL DOCUMENTATION: FINDING NUMBER: (1) ASSESSMENT: (1) JOB ID: [id number] [employer]- All Rights Reserved Reading location - IP/workstation name: [email or web address]
== END ==
LOC: WI 09:21
PROVIDERS: ATTEND Family Medicine Geriatric Medicine
DX: Z12.31 Encounter for screening mammogram for malignant neoplasm of breast (principal)
CPT/HCPCS: 77067

== ENCOUNTER → 2018-06-29 | Outpatient (CLI) | payer BC ==
[2018-06-29 08:29] LABS: ABSOLUTE EOSINOPHILS # (AUTO) 0.3 10^3/uL (0.0-0.6); ABSOLUTE LYMPHOCYTES (AUTO) 1.3 10^3/uL (0.5-4.7); ABSOLUTE MONOCYTES (AUTO) 0.4 10^3/uL (0.1-1.4); BASOPHILS % (AUTO) 0.5 % (0-2); EOSINOPHILS % (AUTO) 5.8 % (0-6); HEMATOCRIT 33.7 % (36.0-47.0); LYMPHOCYTES % (AUTO) 26.6 % (13-45); MEAN CORPUSCULAR HEMOGLOBIN 28.2 pg (27.0-33.4); MEAN CORPUSCULAR HGB CONC 35.7 g/dL (32.0-36.0); MEAN CORPUSCULAR VOLUME 79 fl (80-97); MONOCYTES % (AUTO) 8.1 % (3-13); PLATELET COUNT 281 10^3/uL (150-450); RED BLOOD COUNT 4.27 10^6/uL (3.72-5.28); RED CELL DISTRIBUTION WIDTH 16.8 % (11.5-14.0); TOTAL CELLS COUNTED % (AUTO) 100 %
[2018-06-29 08:52] LABS: ANION GAP 12 (5-19); BLOOD UREA NITROGEN 13 mg/dL (7-20); CALCIUM 9.3 mg/dL (8.4-10.2); CARBON DIOXIDE 28 mmol/L (22-30); CHLORIDE 104 mmol/L (98-107); GLUCOSE 107 mg/dL (75-110); POTASSIUM 4.6 mmol/L (3.6-5.0); SODIUM 144.3 mmol/L (137-145)
== END ==
LOC: OD 07:34
PROVIDERS: ATTEND Family Medicine Geriatric Medicine
DX: R73.01 Impaired fasting glucose (principal); I10 Essential (primary) hypertension; M79.7 Fibromyalgia; Z79.899 Other long term (current) drug therapy
CPT/HCPCS: 36415; 80048; 83036; 85025

== ENCOUNTER → 2018-08-10 | Outpatient (CLI) | payer BC ==
--- NOTE | 2018-08-10 09:04 | RADIOLOGY REPORT (SQ) ---
EXAM DESCRIPTION: CHEST PA/LATERAL COMPLETED DATE/TIME: 08/10/2018 8:43 am REASON FOR STUDY: COUGH,CHEST PAIN COMPARISON: 2015. TECHNIQUE: Frontal and lateral radiographic views of the chest acquired. NUMBER OF VIEWS: Two view. LIMITATIONS: None. FINDINGS: LUNGS AND PLEURA: No opacities, masses or pneumothorax. No pleural effusion. MEDIASTINUM AND HILAR STRUCTURES: No masses or contour abnormalities. HEART AND VASCULAR STRUCTURES: Heart normal size. No evidence for failure. BONES: No acute findings. HARDWARE: None in the chest. OTHER: No other significant finding. IMPRESSION: NO SIGNIFICANT RADIOGRAPHIC FINDING IN THE CHEST. TECHNICAL DOCUMENTATION: JOB ID: [id number] [employer]- All Rights Reserved Reading location - IP/workstation name: [email or web address]
== END ==
LOC: OD 08:23
PROVIDERS: ATTEND Family Medicine Geriatric Medicine
DX: R05 Cough (principal); R07.9 Chest pain, unspecified
CPT/HCPCS: 71046

== ENCOUNTER → 2018-12-03 | Outpatient (CLI) | payer SELFPAY ==
[2018-12-03 12:59] LABS: URINE CREATININE 171.8 mg/dL (15-278); URINE PROTEIN 5.1 mg/dL (<12)
[2018-12-03 13:06] LABS: ANION GAP 12 (5-19); BLOOD UREA NITROGEN 17 mg/dL (7-20); CALCIUM 9.8 mg/dL (8.4-10.2); CARBON DIOXIDE 27 mmol/L (22-30); CHLORIDE 102 mmol/L (98-107); GLUCOSE 83 mg/dL (75-110); POTASSIUM 5.1 mmol/L (3.6-5.0); SODIUM 140.5 mmol/L (137-145)
== END ==
LOC: OD 11:05
PROVIDERS: ATTEND Family Medicine
DX: R79.89 Other specified abnormal findings of blood chemistry (principal)
CPT/HCPCS: 36415; 80048; 82570; 84156

== ENCOUNTER 2018-12-17 09:38 | Emergency (ER) | payer BC ==
--- NOTE | 2018-12-17 10:08 | ER Document Report ---
ED Medical Screen (RME) - General Chief Complaint: Chest Pain Stated Complaint: CHEST PAIN Time Seen by Provider: 12/17/18 10:01 Primary Care Provider: JARRET BOSS MD [Primary Care Provider] - Follow up as needed Notes: Patient is a 63-year-old female that presents to the emergency department for chief complaint of chest pain. Patient reports she is been having this pain since Monday, describes as a pressure in the left chest going to the left arm with hand numbness. ROS: Other than noted above, the 12 point review of systems was reviewed with the patient and were negative, all pertinent findings are included in the HPI. PHYSICAL EXAMINATION: Vital signs reviewed. GENERAL: Well-appearing, well-nourished and in no acute distress. HEAD: Atraumatic, normocephalic. EYES: Pupils equal round extraocular movements intact, conjunctiva are normal. ENT: Nares patent NECK: Normal range of motion CV: Heart regular rate and rhythm LUNGS: No respiratory distress Musculoskeletal: Normal range of motion NEUROLOGICAL: Normal speech PSYCH: Normal mood, normal affect. MDM: Patient seen and examined for rapid initial assessment. Vital signs reviewed. EKG reviewed, no STEMI. A comprehensive ED assessment and evaluation of the patient, analysis of test results and completion of the medical decision making process will be conducted by additional ED providers. *Note is created using voice recognition software and may contain spelling, syntax or grammatical errors. TRAVEL OUTSIDE OF THE [place] IN LAST 30 DAYS: No - Related Data Allergies/Adverse Reactions: No Known Allergies Allergy (Verified 12/17/18 09:45) Past Medical History - Past Medical History Cardiac Medical History: Reports: Hx Hypertension Pulmonary Medical History: Reports: Hx COPD Renal/ Medical History: Denies: Hx Peritoneal Dialysis Musculoskeltal Medical History: Reports Hx Arthritis Past Surgical History: Reports: Hx Cholecystectomy - lap mynor 02/12/18, Hx Hysterectomy - Immunizations Hx Diphtheria, Pertussis, Tetanus Vaccination: Yes Physical Exam - Vital signs Vitals: Temp Pulse Resp BP Pulse Ox 98.6 F 93 16 155/82 H 97 12/17/18 09:54 12/17/18 09:54 12/17/18 09:54 12/17/18 09:54 12/17/18 09:54 Course - Vital Signs Vital signs: Temp Pulse Resp BP Pulse Ox 98.6 F 93 16 155/82 H 97 12/17/18 09:54 12/17/18 09:54 12/17/18 09:54 12/17/18 09:54 12/17/18 09:54 Doctor's Discharge - Discharge Referrals: JARRET BOSS MD [Primary Care Provider] - Follow up as needed
[2018-12-17 11:07] LABS: ABSOLUTE BASOPHILS # (AUTO) 0.1 10^3/uL (0.0-0.2); ABSOLUTE EOSINOPHILS # (AUTO) 0.3 10^3/uL (0.0-0.6); ABSOLUTE LYMPHOCYTES (AUTO) 1.4 10^3/uL (0.5-4.7); ABSOLUTE MONOCYTES (AUTO) 0.4 10^3/uL (0.1-1.4); ABSOLUTE NEUT (AUTO) 2.9 10^3/uL (1.7-8.2); BASOPHILS % (AUTO) 1.5 % (0-2); EOSINOPHILS % (AUTO) 5.1 % (0-6); HEMATOCRIT 34.4 % (36.0-47.0); LYMPHOCYTES % (AUTO) 27.9 % (13-45); MEAN CORPUSCULAR HEMOGLOBIN 27.4 pg (27.0-33.4); MEAN CORPUSCULAR VOLUME 78 fl (80-97); MONOCYTES % (AUTO) 7.6 % (3-13); PLATELET COUNT 253 10^3/uL (150-450); RED BLOOD COUNT 4.39 10^6/uL (3.72-5.28); RED CELL DISTRIBUTION WIDTH 17.8 % (11.5-14.0); SEGMENTED NEUTROPHILS % (AUTO) 57.9 % (42-78); TOTAL CELLS COUNTED % (AUTO) 100 %
--- NOTE | 2018-12-17 11:19 | RADIOLOGY REPORT (SQ) ---
EXAM DESCRIPTION: CHEST SINGLE VIEW COMPLETED DATE/TIME: 12/17/2018 11:00 am REASON FOR STUDY: chest pain COMPARISON: None. EXAM PARAMETERS: NUMBER OF VIEWS: One view. TECHNIQUE: Single frontal radiographic view of the chest acquired. RADIATION DOSE: NA LIMITATIONS: None. FINDINGS: LUNGS AND PLEURA: No opacities, masses or pneumothorax. No pleural effusion. MEDIASTINUM AND HILAR STRUCTURES: No masses. Contour normal. HEART AND VASCULAR STRUCTURES: Heart normal in size. Normal vasculature. BONES: No acute findings. HARDWARE: None in the chest. OTHER: No other significant finding. IMPRESSION: NO ACUTE RADIOGRAPHIC FINDING IN THE CHEST. TECHNICAL DOCUMENTATION: JOB ID: [id number] [employer]- All Rights Reserved Reading location - IP/workstation name: [email or web address]
[2018-12-17 11:34] LABS: ALANINE AMINOTRANSFERASE 14 U/L (9-52); ALBUMIN 4.2 g/dL (3.5-5.0); ALKALINE PHOSPHATASE 104 U/L (38-126); ANION GAP 9 (5-19); ASPARTATE AMINO TRANSFERASE 39 U/L (14-36); BILIRUBIN,DIRECT 0.2 mg/dL (0.0-0.4); BILIRUBIN,TOTAL 0.8 mg/dL (0.2-1.3); BLOOD UREA NITROGEN 16 mg/dL (7-20); CALCIUM 9.3 mg/dL (8.4-10.2); CARBON DIOXIDE 30 mmol/L (22-30); CHLORIDE 102 mmol/L (98-107); GLUCOSE 94 mg/dL (75-110); POTASSIUM 3.6 mmol/L (3.6-5.0); SODIUM 141.2 mmol/L (137-145); TOTAL PROTEIN 7.8 g/dL (6.3-8.2)
--- NOTE | 2018-12-17 11:48 | ER Document Report ---
ED Cardiac - General Chief Complaint: Chest Pain Stated Complaint: CHEST PAIN Time Seen by Provider: 12/17/18 10:01 Primary Care Provider: JARRET BOSS MD [Primary Care Provider] - Follow up as needed Mode of Arrival: Ambulatory Information source: Patient Notes: Patient is a 63-year-old female who presents to the emergency department with complaints of chest pain. Patient reports chest pain has been ongoing since Monday. She states it feels like a pressure on the left side of her chest that radiates straight through to her back, up to her jaw and into her left arm. She reports recently being diagnosed with costochondritis. She states this morning when she woke up at approximately 4 AM this morning and took 2 baby aspirins and she states that the chest pain was slightly worse than it had been the last few days. Patient denies any nausea, vomiting, shortness of breath or diaphoresis. She states she then went to her primary care provider this morning who referred her to the emergency department. Patient has past medical history of pancreatitis, hypertension COPD and osteoarthritis. Patient reports she had a stress test done 3 years ago in [place] which was normal. Patient denies ever having smoked. Past surgical history includes cholecystectomy and partial hysterectomy. TRAVEL OUTSIDE OF THE [place] IN LAST 30 DAYS: No - Related Data Allergies/Adverse Reactions: No Known Allergies Allergy (Verified 12/17/18 09:45) Past Medical History - General Information source: Patient - Social History Smoking Status: Never Smoker Chew tobacco use (# tins/day): No Frequency of alcohol use: Occasional Drug Abuse: None Family History: Reviewed & Not Pertinent Patient has suicidal ideation: No Patient has homicidal ideation: No - Past Medical History Cardiac Medical History: Reports: Hx Hypertension Pulmonary Medical History: Reports: Hx COPD Renal/ Medical History: Denies: Hx Peritoneal Dialysis GI Medical History: Reports: Hx Pancreatitis Musculoskeletal Medical History: Reports Hx Arthritis Past Surgical History: Reports: Hx Cholecystectomy - lap mynor 02/12/18, Hx Hysterectomy - Immunizations Hx Diphtheria, Pertussis, Tetanus Vaccination: Yes Review of Systems - Review of Systems Constitutional: No symptoms reported EENT: No symptoms reported Cardiovascular: Chest pain. denies: Palpitations, Dyspnea Respiratory: No symptoms reported. denies: Short of breath Gastrointestinal: No symptoms reported. denies: Abdominal pain, Nausea, Vomiting Genitourinary: No symptoms reported Female Genitourinary: No symptoms reported Musculoskeletal: No symptoms reported Skin: No symptoms reported Hematologic/Lymphatic: No symptoms reported Neurological/Psychological: No symptoms reported Physical Exam - Vital signs Vitals: Temp Pulse Resp BP Pulse Ox 98.6 F 93 16 155/82 H 97 12/17/18 09:54 12/17/18 09:54 12/17/18 09:54 12/17/18 09:54 12/17/18 09:54 - Notes Notes: PHYSICAL EXAMINATION: GENERAL: Well-appearing, well-nourished and in no acute distress. HEAD: Atraumatic, normocephalic. EYES: Pupils equal round and reactive to light, extraocular movements intact, conjunctiva are normal. ENT: Nares patent, oropharynx clear without exudates. Moist mucous membranes. NECK: Normal range of motion, supple without lymphadenopathy LUNGS: Breath sounds clear to auscultation bilaterally and equal. No wheezes rales or rhonchi. HEART: Regular rate and rhythm without murmurs ABDOMEN: Soft, nontender, nondistended abdomen. No guarding, no rebound. No masses appreciated. Female : deferred Musculoskeletal: Normal range of motion, no pitting or edema. No cyanosis. Reproducible chest pain to the left chest wall with palpation. NEUROLOGICAL: Cranial nerves grossly intact. Normal speech, normal gait. Normal sensory, motor exams PSYCH: Normal mood, normal affect. SKIN: Warm, Dry, normal turgor, no rashes or lesions noted. Course - Re-evaluation Re-evalutation: Labs as recorded are unremarkable. Initial troponin is negative. Chest x-ray with no evidence of cardiomegaly, pneumonia or any other acute findings. EKG reveals a sinus rhythm, rate of 96, QTc 455, normal axis, no ST segment elevations or depressions. Will obtain second troponin as ordered. Patient has been chest pain-free here in the emergency department other than when I palpated her left chest wall. Patient's vital signs have been within normal limits. Repeat troponin is also negative. Patient reports she had a stress test approximately 3 years ago which was unremarkable. Patient does have follow-up with her PCP. Patient wishes to be discharged home and I feel this is a safe option. Patient has a heart score of 2. Patient given ED return precautions which patient verbalizes understanding of and agreement to. - Vital Signs Vital signs: Temp Pulse Resp BP Pulse Ox 98.6 F 93 15 143/85 H 96 12/17/18 09:54 12/17/18 09:54 12/17/18 16:01 12/17/18 16:01 12/17/18 16:01 - Laboratory Result Diagrams: 12/17/18 10:50 12/17/18 10:50 Laboratory results interpreted by me: 12/17/18 12/17/18 10:50 10:50 Hct 34.4 L MCV 78 L RDW 17.8 H Est GFR (Non-Af Amer) 50 L AST 39 H Discharge - Discharge Clinical Impression: Chest pain Qualifiers: Chest pain type: unspecified Qualified Code(s): R07.9 - Chest pain, unspecified Condition: Stable Disposition: HOME, SELF-CARE Additional Instructions: Chest Pain of Unclear Cause The exact cause of your chest pain isn't clear. Fortunately, there is no evidence of a dangerous medical condition. Further testing may be required to find the source of the pain. Most often, we find that this pain is coming from the chest wall -- the muscles or rib joints in the chest. But chest pain can come from the lung and lung lining, the esophagus, the heart valves or heart lining, and even the s tomach or gallbladder. Rest. Eat lightly until the pain is gone. We may prescribe medicine for pa in and inflammation. You should call the physician immediately if the pain radiates to the shoulder, jaw or arms; if you start to run a fever or develop a cough; or if you develop shortness of breath, or other new or alarming symptoms. You were seen today for chest pain. The exact cause of your pain is unclear. However, based on your cardiac enzyme testing, chest x-ray, and EKG it does not appear that it is from an immediately life-threatening cause at this time. Although your testing here is normal is critical that you follow-up with your primary care physician for continued evaluation of this chest pain and possible stress testing. I recommended you see your physician within the next 24-48 hours to be evaluated for consideration of a stress test. Please return to emergency department immediately if you have worsening of your chest pain, shortness of breath, vomiting, become unable to exert yourself due to pain or difficulty breathing, you pass out, or have any pain that radiates into your arms, jaw, or back. Please also return if you have any additional symptoms that are concerning to you. Referrals: JARRET BOSS MD [Primary Care Provider] - Follow up as needed
[2018-12-17 16:34] VITALS: BP 143/85
--- NOTE | 2018-12-17 21:22 | EKG REPORT ---
SEVERITY:- NORMAL ECG - SINUS RHYTHM : Confirmed by: Lashanda Rodriguez MD 17-Dec-2018 21:21:29
== END 2018-12-17 16:34 | disposition home or self-care (01) ==
LOC: ER 09:38
DX: R07.89 Other chest pain (principal); J44.9 Chronic obstructive pulmonary disease, unspecified; I10 Essential (primary) hypertension
CPT/HCPCS: 36415; 71045; 80053; 84484; 85025; 93005; 93010; 99284

== ENCOUNTER → 2019-01-18 | Outpatient (CLI) | payer BC ==
[2019-01-18 13:20] LABS: URINE PROTEIN 5.9 mg/dL (<12)
[2019-01-18 13:37] LABS: ANION GAP 17 (5-19); BLOOD UREA NITROGEN 19 mg/dL (7-20); CARBON DIOXIDE 23 mmol/L (22-30); CHLORIDE 105 mmol/L (98-107); GLUCOSE 86 mg/dL (75-110); POTASSIUM 4.7 mmol/L (3.6-5.0); SODIUM 145.1 mmol/L (137-145)
== END ==
LOC: OD 11:51
PROVIDERS: ATTEND Family Medicine
DX: R79.89 Other specified abnormal findings of blood chemistry (principal)
CPT/HCPCS: 36415; 80048; 82570; 84156

== ENCOUNTER 2019-02-28 07:08 | Day surgery (SDC) | payer BC ==
[~2019-02-28 07:08] MED LIST changes: -ALBUTEROL SULFATE 0.083% NEB 2.5 MG/3 ML AMPUL NEB ONE; +FENTANYL CITRATE INJ/PF 100 MCG/2 ML AMPUL ONE; +KETOROLAC TROMETHAMINE 0.45% 4 DROP/0.4 ML DROPERETTE OD PRN; +MIDAZOLAM 2 MG/2 ML INJ ONE
[2019-02-28] MEDS ORDERED: LIDOCAINE 1%/PHENYLEPHRINE 1.5% 1 ML VIAL ONE (07:29)
[2019-02-28] MEDS ORDERED: EPINEPHRINE INJ/PF 1 MG/1 ML AMPULE ONE (07:29)
[2019-02-28] MEDS ORDERED: CHONDR SU A NA/HYALUR INTRAOC KIT (SURGICARE) ONE (07:29)
[2019-02-28] MEDS: TROPICAMIDE 1% OPH SOLN 3 ML OD PRN ×3 (08:39→08:58)
[2019-02-28] MEDS: TETRACAINE HCL 0.5% OPH SOLN 4 ML OD PRN ×3 (08:39→09:00)
[2019-02-28] MEDS: CYCLOPENTOLATE 0.2%/PHENYLEPHRINE 1% OPH SOLN 2 ML OD PRN ×3 (08:40→08:58)
[2019-02-28] MEDS: BESIFLOXACIN HCL 0.6% OPH SUSP 5 ML BOTTLE OD PRN ×4 (08:40→09:23)
[2019-02-28] MEDS ORDERED: TOBRAMYCIN SULFATE/DEXAMETH OPH OINTMENT 3.5 GM ONE (09:22)
[2019-02-28] MEDS: DORZOLAMIDE HCL 2%/TIMOLOL MALEAT 0.5% OPH SOLN 10 ML OD PRN ×2 (09:23)
--- NOTE | 2019-02-28 21:05 | [facility] DISCHARGE SUMMARY E ---
[facility] Discharge Summary NAME: TIANNA SAENZ AGE: 63Y ADMITTED: 02/28/2019 DISCHARGED: The patient is a 63-year-old patient who underwent cataract extraction right eye. DIAGNOSIS: Cataract right eye. She underwent surgery because she was having decrease in night vision and difficulty seeing to read books. She should be on a regular diet. No bending at the waist and no heavy lifting. She should use her moxifloxacin, Prolensa, and Pred Forte at 3:00 p.m. and 8:00 p.m. and sleep with a rigid shield. I will see her for her 1-day postop tomorrow. DICTATING PHYSICIAN: DORY HALLMAN M.D. [id number] PHY#: [id number] ID: [id number] JOB#: [id number] ACCT: [id number] cc:DORY HALLMAN M.D. >
--- NOTE | 2019-02-28 21:05 | [facility] OPERATIVE REPORT E ---
[facility] Operative Report NAME: TIANNA SAENZ AGE: 63Y DATE OF SURGERY: 02/28/2019 ROOM: PREOPERATIVE DIAGNOSIS: CATARACT, RIGHT EYE. POSTOPERATIVE DIAGNOSIS: CATARACT, RIGHT EYE. OPERATION: Cataract extraction with insertion of an IOL of the right eye. SURGEON: DORY HALLMAN M.D. ANESTHESIA: Topical. PROCEDURE: After obtaining appropriate consent, the patient's right eye was prepped and draped in sterile fashion as well as the surgeon in a sterile manner and cataract surgery was started. First a paracentesis blade was used to make a side-port incision. Viscoelastic was used to inflate the anterior chamber. Next a 2.4 mm incision was made with a 2.4 mm blade, clear corneal temporally. A continuous capsulorrhexis was made using a cystotome and Utrata forceps. Following this hydrodissection was carried out to make the lens fully loose and mobile and it was rotated 90 degrees. Following this, a artuef-pns-ccdubap technique was used to phacoemulsify the lens with a CDE of 3.74. The remaining cortex was removed with irrigation/aspiration. Provisc was instilled into the capsular bag to inflate the bag. A SN60WF, 18.5 diopter lens was placed. The remaining viscoelastic material was removed with irrigation/aspiration. Following this, the incision was found to be watertight. Besivance was instilled into the eye and a protective shield was placed over the eye. The patient returned to the postoperative recovery in stable condition. DICTATING PHYSICIAN: DORY HALLMAN M.D. [id number] PHY#: [id number] ID: [id number] JOB#: [id number] ACCT: [id number] cc:DORY HALLMAN M.D. >
== END 2019-02-28 09:58 | disposition home or self-care (01) ==
LOC: SC 07:08
PROVIDERS: ATTEND Internal Medicine
DX: H25.13 Age-related nuclear cataract, bilateral (principal); I10 Essential (primary) hypertension; J44.9 Chronic obstructive pulmonary disease, unspecified; M79.7 Fibromyalgia; K21.9 Gastro-esophageal reflux disease without esophagitis; Z79.899 Other long term (current) drug therapy; Z79.51 Long term (current) use of inhaled steroids
CPT/HCPCS: 66984; V2632; J2250; J3490 ×3; J0171; J3010; J2370; 142

== ENCOUNTER 2019-10-07 16:27 | Emergency (ER) | payer BC ==
--- NOTE | 2019-10-07 17:29 | ER Document Report ---
ED Medical Screen (RME) - General Chief Complaint: Blood Pressure Problem Stated Complaint: BLOOD PRESSURE ISSUE Time Seen by Provider: 10/07/19 17:23 Primary Care Provider: JARRET BOSS MD [Primary Care Provider] - Follow up as needed TRAVEL OUTSIDE OF THE [place] IN LAST 30 DAYS: No - HPI Notes: 10/07/19 17:27 Patient is a 63-year-old female with history of hypertension and COPD who presents complaining of dull left arm pain for the past couple days and right- sided mild headache and right-sided jaw pain that began around 12 PM today. This is not the worst headache of her life and did not start as a thunderclap. Denies drug allergies. She is not having any active chest pain or shortness of breath at this time. No abdominal pain or vomiting. Pt declining any PO meds for her LOPEZ at this time. I have treated and performed a rapid initial assessment of this patient. A comprehensive ED assessment and evaluation of the patient, analysis of test results and completion of medical decision making process will be conducted by additional ED providers. PHYSICAL EXAMINATION: GENERAL: Well-appearing, well-nourished and in no acute distress. A&Ox4. Answers questions appropriately. Heart: RRR Lungs: CTAB Neuro: Cranial nerves grossly intact. GCS 15. - Related Data Allergies/Adverse Reactions: No Known Allergies Allergy (Verified 10/07/19 17:20) Past Medical History - Past Medical History Cardiac Medical History: Reports: Hx Hypertension Denies: Hx Heart Attack Pulmonary Medical History: Reports: Hx COPD Denies: Hx Asthma Neurological Medical History: Denies: Hx Cerebrovascular Accident, Hx Seizures Renal/ Medical History: Denies: Hx Peritoneal Dialysis GI Medical History: Reports: Hx Hiatal Hernia, Hx Pancreatitis. Denies: Hx Hepatitis, Hx Ulcer Musculoskeltal Medical History: Reports Hx Arthritis Infectious Medical History: Denies: Hx Hepatitis Past Surgical History: Reports: Hx Cholecystectomy - lap mynor 02/12/18, Hx Hysterectomy. Denies: Hx Mastectomy, Hx Open Heart Surgery, Hx Pacemaker - Immunizations Hx Diphtheria, Pertussis, Tetanus Vaccination: Yes Physical Exam - Vital signs Vitals: Temp Pulse Resp BP Pulse Ox 98.8 F 99 20 176/93 H 100 10/07/19 16:42 10/07/19 16:42 10/07/19 16:42 10/07/19 16:42 10/07/19 16:42 Course - Vital Signs Vital signs: Temp Pulse Resp BP Pulse Ox 98.8 F 99 20 176/93 H 100 10/07/19 16:42 10/07/19 16:42 10/07/19 16:42 10/07/19 16:42 10/07/19 16:42 Doctor's Discharge - Discharge Referrals: JARRET BOSS MD [Primary Care Provider] - Follow up as needed
[2019-10-07 18:12] LABS: ABSOLUTE BASOPHILS # (AUTO) 0.1 10^3/uL (0.0-0.2); ABSOLUTE EOSINOPHILS # (AUTO) 0.2 10^3/uL (0.0-0.6); ABSOLUTE LYMPHOCYTES (AUTO) 1.6 10^3/uL (0.5-4.7); ABSOLUTE MONOCYTES (AUTO) 0.4 10^3/uL (0.1-1.4); BASOPHILS % (AUTO) 1.3 % (0-2); EOSINOPHILS % (AUTO) 3.4 % (0-6); HEMATOCRIT 36.5 % (36.0-47.0); HEMOGLOBIN 12.7 g/dL (12.0-15.5); LYMPHOCYTES % (AUTO) 30.2 % (13-45); MEAN CORPUSCULAR HEMOGLOBIN 27.7 pg (27.0-33.4); MEAN CORPUSCULAR HGB CONC 34.7 g/dL (32.0-36.0); MEAN CORPUSCULAR VOLUME 80 fl (80-97); MONOCYTES % (AUTO) 7.5 % (3-13); PLATELET COUNT 264 10^3/uL (150-450); RED BLOOD COUNT 4.57 10^6/uL (3.72-5.28); RED CELL DISTRIBUTION WIDTH 17.5 % (11.5-14.0); SEGMENTED NEUTROPHILS % (AUTO) 57.6 % (42-78); TOTAL CELLS COUNTED % (AUTO) 100 %; WHITE BLOOD COUNT 5.2 10^3/uL (4.0-10.5)
[2019-10-07 18:28] LABS: ALBUMIN 4.6 g/dL (3.5-5.0); ALKALINE PHOSPHATASE 106 U/L (38-126); ANION GAP 11 (5-19); ASPARTATE AMINO TRANSFERASE 21 U/L (14-36); BILIRUBIN,DIRECT 0.3 mg/dL (0.0-0.4); BILIRUBIN,TOTAL 0.6 mg/dL (0.2-1.3); BLOOD UREA NITROGEN 14 mg/dL (7-20); CALCIUM 9.7 mg/dL (8.4-10.2); CARBON DIOXIDE 28 mmol/L (22-30); CHLORIDE 102 mmol/L (98-107); GLUCOSE 87 mg/dL (75-110); POTASSIUM 4.5 mmol/L (3.6-5.0); TOTAL PROTEIN 8.1 g/dL (6.3-8.2)
--- NOTE | 2019-10-07 18:30 | RADIOLOGY REPORT (SQ) ---
EXAM DESCRIPTION: CHEST 2 VIEWS COMPLETED DATE/TIME: 10/07/2019 6:15 pm REASON FOR STUDY: left arm pain, jaw pain, elevated BP COMPARISON: 12/17/2018. EXAM PARAMETERS: NUMBER OF VIEWS: two views TECHNIQUE: Digital Frontal and Lateral radiographic views of the chest acquired. RADIATION DOSE: NA LIMITATIONS: none FINDINGS: LUNGS AND PLEURA: No opacities, masses or pneumothorax. No pleural effusion. MEDIASTINUM AND HILAR STRUCTURES: No masses or contour abnormalities. HEART AND VASCULAR STRUCTURES: Heart normal size. No evidence for failure. BONES: No acute findings. HARDWARE: None in the chest. OTHER: No other significant finding. IMPRESSION: NO ACUTE RADIOGRAPHIC FINDING IN THE CHEST. TECHNICAL DOCUMENTATION: JOB ID: [id number] [employer]- All Rights Reserved Reading location - IP/workstation name: [email or web address]
--- NOTE | 2019-10-07 20:46 | ER Document Report ---
ED Blood Pressure Problem - General Chief Complaint: High Blood Pressure Stated Complaint: BLOOD PRESSURE ISSUE Time Seen by Provider: 10/07/19 17:23 Primary Care Provider: JARRET BOSS MD [Primary Care Provider] - Follow up as needed TRAVEL OUTSIDE OF THE [place] IN LAST 30 DAYS: No - Related Data Allergies/Adverse Reactions: No Known Allergies Allergy (Verified 10/07/19 17:20) Home Medications: metoprolol. HCTZ Past Medical History - Social History Smoking Status: Never Smoker Family History: Reviewed & Not Pertinent Patient has suicidal ideation: No Patient has homicidal ideation: No - Past Medical History Cardiac Medical History: Reports: Hx Hypertension Denies: Hx Heart Attack Pulmonary Medical History: Reports: Hx COPD Denies: Hx Asthma Neurological Medical History: Denies: Hx Cerebrovascular Accident, Hx Seizures Renal/ Medical History: Denies: Hx Peritoneal Dialysis GI Medical History: Reports: Hx Hiatal Hernia, Hx Pancreatitis. Denies: Hx Hepatitis, Hx Ulcer Musculoskeletal Medical History: Reports Hx Arthritis Infectious Medical History: Denies: Hx Hepatitis Past Surgical History: Reports: Hx Cholecystectomy - lap mynor 02/12/18, Hx Hysterectomy. Denies: Hx Mastectomy, Hx Open Heart Surgery, Hx Pacemaker - Immunizations Hx Diphtheria, Pertussis, Tetanus Vaccination: Yes Physical Exam - Vital signs Vitals: Temp Pulse Resp BP Pulse Ox 98.8 F 99 20 176/93 H 100 10/07/19 16:42 10/07/19 16:42 10/07/19 16:42 10/07/19 16:42 10/07/19 16:42 Course - Vital Signs Vital signs: Temp Pulse Resp BP Pulse Ox 98.8 F 99 20 176/93 H 99 10/07/19 16:42 10/07/19 16:42 10/07/19 16:42 10/07/19 16:42 10/07/19 18:56 - Laboratory Result Diagrams: 10/07/19 17:55 10/07/19 17:55 Laboratory results interpreted by me: 10/07/19 10/07/19 17:55 17:55 RDW 17.5 H Est GFR ( Amer) 59 L Est GFR (MDRD) Non-Af 49 L Discharge - Discharge Referrals: JARRET BOSS MD [Primary Care Provider] - Follow up as needed
--- NOTE | 2019-10-07 21:27 | ER Document Report ---
ED Blood Pressure Problem - General Chief Complaint: High Blood Pressure Stated Complaint: BLOOD PRESSURE ISSUE Time Seen by Provider: 10/07/19 17:23 Primary Care Provider: JARRET BOSS MD [Primary Care Provider] - Follow up as needed Mode of Arrival: Ambulatory Information source: Patient TRAVEL OUTSIDE OF THE [place] IN LAST 30 DAYS: No - HPI Patient complains to provider of: High blood pressure Onset: Just prior to arrival Onset/Duration: Gradual Quality of pain: Dull, Other - Achy headache in the frontal left side of face. Severity: Moderate Problem is: New problem Pt currently taking medication for problem: Yes - Patient reports running out of medicine yesterday for blood pressure Associated symptoms: Headache Similar symptoms previously: No Recently seen / treated by doctor: Yes Notes: Patient reports she ran out of her blood pressure medicines yesterday. She got up to go to work and did go to work this morning. Then she noted that she needed to see her doctor regarding her blood pressure medicines. So she was found to have systolic blood pressure over 200 around 202 diastolic around 195. With blood pressure elevation she was directed to come to the emergency department for further evaluation. - Related Data Allergies/Adverse Reactions: No Known Allergies Allergy (Verified 10/07/19 17:20) Home Medications: metoprolol. HCTZ Past Medical History - Social History Smoking Status: Never Smoker Frequency of alcohol use: None Drug Abuse: None Lives with: Alone Family History: Reviewed & Not Pertinent Patient has suicidal ideation: No Patient has homicidal ideation: No - Past Medical History Cardiac Medical History: Reports: Hx Hypertension, Other - 63-year-old black female patient chest x-ray shows history of COPD osteopor Denies: Hx Heart Attack Pulmonary Medical History: Reports: Hx COPD Denies: Hx Asthma EENT Medical History: Reports: None Neurological Medical History: Denies: Hx Cerebrovascular Accident, Hx Seizures Endocrine Medical History: Reports: None Renal/ Medical History: Reports: None. Denies: Hx Peritoneal Dialysis Malignancy Medical History: Reports: None GI Medical History: Reports: Hx Hiatal Hernia, Hx Pancreatitis. Denies: Hx Hepatitis, Hx Ulcer Musculoskeletal Medical History: Reports Hx Arthritis Skin Medical History: Reports None Psychiatric Medical History: Reports: None Traumatic Medical History: Reports: None Infectious Medical History: Reports: None. Denies: Hx Hepatitis Past Surgical History: Reports: Hx Cholecystectomy - lap mynor 02/12/18, Hx Hysterectomy. Denies: Hx Mastectomy, Hx Open Heart Surgery, Hx Pacemaker - Immunizations Hx Diphtheria, Pertussis, Tetanus Vaccination: Yes Review of Systems - Review of Systems Constitutional: Other - Headache associated with hypertension. EENT: No symptoms reported Cardiovascular: No symptoms reported, Other - Hypertension Respiratory: Other - COPD Gastrointestinal: Other - No GI problems Genitourinary: Other - No urinary problems Female Genitourinary: Other - No vaginal problems Musculoskeletal: Other - Fibromyalgia Skin: Other - No skin disorder Hematologic/Lymphatic: Other - No abnormal hematologic disorder Neurological/Psychological: Other - No prior stroke Physical Exam - Vital signs Vitals: Temp Pulse Resp BP Pulse Ox 98.8 F 99 20 176/93 H 100 10/07/19 16:42 10/07/19 16:42 10/07/19 16:42 10/07/19 16:42 10/07/19 16:42 Interpretation: Normal - General General appearance: Appears well, Alert - HEENT Head: Normocephalic, Atraumatic Eyes: Normal Pupils: PERRL - Respiratory Respiratory status: No respiratory distress Chest status: Nontender Breath sounds: Normal Chest palpation: Normal - Cardiovascular Rhythm: Regular Heart sounds: Normal auscultation Murmur: No - Abdominal Inspection: Normal Distension: No distension Bowel sounds: Normal Tenderness: Nontender Organomegaly: No organomegaly - Back Back: Normal, Nontender - Extremities General upper extremity: Normal inspection, Nontender, Normal color, Normal ROM, Normal temperature General lower extremity: Normal inspection, Nontender, Normal color, Normal ROM, Normal temperature, Normal weight bearing. No: Cooper's sign - Neurological Neuro grossly intact: Yes Cognition: Normal Orientation: AAOx4 Arie Coma Scale Eye Opening: Spontaneous [place] Coma Scale Verbal: Oriented [place] Coma Scale Motor: Obeys Commands Arie Coma Scale Total: 15 Speech: Normal Motor strength normal: LUE, RUE, LLE, RLE Sensory: Normal - Psychological Associated symptoms: Normal affect, Normal mood - Skin Skin Temperature: Warm Skin Moisture: Dry Skin Color: Normal Course - Re-evaluation Re-evalutation: 10/08/19 00:20 Blood pressure is improving slowly. Patient is resting comfortably. CT scan of head did not show any acute process. Patient has been given her usual medications metoprolol and hydrochlorothiazide which she usually takes daily today yesterday she did not have any of her blood pressure medicines and hence ended up in the ED with accelerated hypertension. - Vital Signs Vital signs: Temp Pulse Resp BP Pulse Ox 98.8 F 99 12 168/99 H 96 10/07/19 16:42 10/07/19 16:42 10/08/19 00:10 10/08/19 00:10 10/08/19 00:10 - Laboratory Result Diagrams: 10/07/19 17:55 10/07/19 17:55 Laboratory results interpreted by me: 10/07/19 10/07/19 17:55 17:55 RDW 17.5 H Est GFR ( Amer) 59 L Est GFR (MDRD) Non-Af 49 L - Diagnostic Test Radiology reviewed: Image reviewed, Reports reviewed Radiology results interpreted by me: 10/07/19 21:50 Chest x-ray does not show any acute cardiopulmonary process. - EKG Interpretation by Me EKG shows normal: Sinus rhythm Rate: Normal Rhythm: NSR [place]/QRS: Left axis deviation When compared to previous EKG there are: No significant change Discharge - Discharge Clinical Impression: Hypertension, Headache Condition: Stable Disposition: HOME, SELF-CARE Instructions: High Blood Pressure, Requiring Treatment ([facility]), Hydrochlorothiazide ([facility]), Beta Blockers ([facility]) Additional Instructions: Your blood pressure was elevated today associated with a headache. Most likely this is all due to the fact that you were out of your usual blood pressure m edicines today.. Inasmuch as your primary provider has sent to the pharmacy your renewed prescriptions of metoprolol and hydrochlorothiazide you may pick those medicines up tomorrow. And I recommend if there is further headache issues I would recommend Tylenol as needed. Referrals: JARRET BOSS MD [Primary Care Provider] - Follow up as needed ED NIH Stroke Scale - NIH Stroke Scale *: 1. NIH scale should be completed with appropriate accompanying assessment tools. *: 2. The NIH should reflect what the patient is capable of doing and should not be coached by the clinician. 1a. Level of Consciousness: 0=Alert;keenly responsive -: 1=Drowsy -: 2=Obtunded -: 3=Coma/unresponsive or reflex to noxious stimuli. 1a. Responses: 0 1b. Orientation Questions: a. What month is it? -: b. How old are you? -: 0=Answers both questions correctly. -: 1=Answers one question correctly or patient is intubated or has orotracheal trauma. -: 2=Answers neither question correctly. 1b. Responses: 0 1c. Response to commands: a. Open and close eyes? -: b. Adaptive Physical Educator and release hand? -: Credit is given despite weakness. Demonstration of task is permitted. Substitute command if hands cannot be used. -: 0=Performs both tasks correctly -: 1=Performs one task correctly -: 2=Performs neither task correctly 1c. Responses: 0 2. Gaze: Establish eye contact and instruct patient to "Follow my finger" -: 0=Normal -: 1=Partial gaze palsy. Gaze is abnormal in one or both eyes, but where forced deviation or total gaze paresis is not present. -: 2=Forced deviation or total gaze paresis. 2. Responses: 0 3. Visual Grewal: Sees fingers in all four quadrants. -: 0=No visual loss. -: 1=Partial hemianopsia. -: 2=Complete hemianopsia. -: 3=Bilateral hemianopsia (including Cortical blindness) 3. Responses: 0 4. Facial Movement: Instruct patient to: -: a. Show me your teeth -: b. Raise your eyebrows -: c. Close your eyes -: d. Smile -: 0=Normal symmetrical movement -: 1=Minor paralysis (flattened nasolabial fold, asymmetry on smiling). -: 2=Partial paralysis (total or near total paralysis of lower face). -: 3=Complete paralysis of upper and lower face 4. Responses: 0 5. Motor functions (left arm): Alternate sides and extend each arm with palms down (90 degrees if sitting or 45 degrees for supine). -: 0=No drift;limb holds for full 10 seconds. -: 1=Drift; limb holds but drifts down before full 10 seconds, but does not hit bed. -: 2=Some effort against gravity; limb cannot get to or maintain position. -: 3=No effort against gravity; limb falls. -: 4=No movement. -: UN=Amputation, joint fusion, explain in comments. 5. Responses (left arm): 0 5. Motor Functions (right arm): Alternate sides and extend each arm with palms down (90 degrees if sitting or 45 degrees for supine). -: 0=No drift;limb holds for full 10 seconds. -: 1=Drift; limb holds but drifts down before full 10 seconds, but does not hit bed. -: 2=Some effort against gravity; limb cannot get to or maintain position. -: 3=No effort against gravity; limb falls. -: 4=No movement. -: UN=Amputation, joint fusion, explain in comments. 5. Responses (right arm): 0 6. Motor Functions (left leg): With patient lying supine, alternate sides and extend each leg (30 degrees always while supine). -: 0=No drift, leg holds position for full 5 seconds -: 1=Drift; leg falls before full 5 seconds but does not hit bed. -: 2=Some effort against gravity, leg falls to bed but some effort against gravity. -: 3=No effort against gravity, leg falls to bed immediately. -: 4=No movement. -: UN=Amputation, joint fusion; explain in comments. 6. Responses (left leg): 0 6. Motor Functions (right leg): With patient lying supine, alternate sides and extend each leg (30 degrees always while supine). -: 0=No drift, leg holds position for full 5 seconds -: 1=Drift; leg falls before full 5 seconds but does not hit bed. -: 2=Some effort against gravity, leg falls to bed but some effort against gravity. -: 3=No effort against gravity, leg falls to bed immediately. -: 4=No movement. -: UN=Amputation, joint fusion; explain in comments. 6. Responses (right leg): 0 7. Limb Ataxia: With eyes open instruct patient to: -: a. "Touch your finger to your nose". -: b. "Touch your heel to your holley" -: 0=Absent -: 1=Present in one limb. -: 2=Present in two limbs. -: UN=Amputation or joint fusion; explain in comments. 7. Responses: 0 8. Sensory: Test sensation using pinprick or noxious stimuli. Test as many body parts as possible. -: 0=Normal;no sensory loss -: 1=Mile to moderate sensory loss (patient feels pin prick but is less sharp on affected side). -: 2=Severe or total sensory loss. 8. Responses: 0 9. Best Language: Instruct patient to: -: a. "Describe what you see in this picture." -: b. "Name the items in this picture." -: c. "Read these sentences." -: 0=No aphasia, normal -: 1=Mild to moderate aphasia. -: 2=Severe aphasia -: 3=Mute, global aphasia, no usable speech or auditory comprehension. 10. Articulation, Dysarthia: Instruct patient to: -: "Read these words" or "Repeat these words" -: 0=Normal -: 1=Mild to moderate; patient may slur some words but can be understood without difficulty. -: 2=Severe; patients speech so slurred as to be unintelligible in the absence of dysphasia. -: UN=Intubated or other physical barrier, explain in comments. 10. Responses: 0 11. Extinction or inattention: 0=No abnormality -: 1= Visual, tactile, auditory, spatial, or personal inattention or extinction to bilateral simulation in one or the sensory modalities. -: 2=Profound jeremías-inattention or jeremías-inattention to more than one modality; does not recognize own hand. Total Score: 0
--- NOTE | 2019-10-07 22:40 | RADIOLOGY REPORT (SQ) ---
EXAM DESCRIPTION: CT HEAD WITHOUT IV CONTRAST COMPLETED DATE/TME: 10/07/2019 21:39 CLINICAL HISTORY: 63 years Female, headache/htn increased COMPARISON: None. TECHNIQUE: No contrast. Coronal and sagittal reformat. This exam was performed according to our departmental dose-optimization program, which includes automated exposure control, adjustment of the mA and/or kV according to patient size and/or use of iterative reconstruction technique. FINDINGS: No hemorrhage or infarct. No mass, mass effect, or midline shift. Brain and extra-axial structures appear intact. IMPRESSION: Normal CT of the head.
[2019-10-07] MEDS ORDERED: HYDROCHLOROTHIAZIDE 25 MG TABLET PO ONE (23:13)
[2019-10-07] MEDS ORDERED: METOPROLOL SUCCINATE 25 MG TAB.SR.24H PO ONE (23:13)
[2019-10-07] MEDS ORDERED: ACETAMINOPHEN 325 MG TABLET PO ONE (23:18)
[2019-10-08 01:05] VITALS: BP 161/97
--- NOTE | 2019-10-08 11:20 | EKG REPORT ---
SEVERITY:- BORDERLINE ECG - SINUS RHYTHM PROBABLE LEFT ATRIAL ABNORMALITY BORDERLINE LEFT AXIS DEVIATION BORDERLINE T ABNORMALITIES, INFERIOR LEADS : Confirmed by: Lashanda Rodriguez MD 08-Oct-2019 11:19:41
== END 2019-10-08 01:26 | disposition home or self-care (01) ==
LOC: ER 16:27
DX: I10 Essential (primary) hypertension (principal); R51 Headache; J44.9 Chronic obstructive pulmonary disease, unspecified
CPT/HCPCS: 36415; 70450; 71046; 80053; 84484; 85025; 93005; 93010; 99284

== ENCOUNTER → 2020-04-02 | Outpatient (CLI) | payer MEDICARE, BC ==
--- NOTE | 2020-04-02 09:05 | WOMENS IMAGING REPORT ---
EXAM DESCRIPTION: U/S ABDOMEN TOTAL IMAGES COMPLETED DATE/TIME: 04/02/2020 8:52 am REASON FOR STUDY: R10.84 GENERALIZED ABDOMINAL PAIN R10.84 GENERALIZED ABDOMINAL PAIN COMPARISON: 03/21/2018 TECHNIQUE: Dynamic and static grayscale images acquired of the abdomen and recorded on PACS. Additio nal selected color Doppler and spectral images recorded. Note: Study does not meet criteria for complete doppler/duplex scan LIMITATIONS: None. FINDINGS: PANCREAS: No masses. Visualized pancreatic duct normal caliber. LIVER: Fatty infiltration. No focal mass. No intrahepatic biliary dilatation. LIVER VASCULATURE: Normal directional flow of the main portal vein and hepatic veins. GALLBLADDER: Surgically absent. ULTRASOUND-DETECTED GUZMAN'S SIGN: Not applicable. INTRAHEPATIC DUCTS AND COMMON DUCT: CBD and intrahepatic ducts normal caliber. No filling defects. INFERIOR VENA CAVA: Not adequately visualized due to acoustic impedance. AORTA: Not adequately visualized due to acoustic impedance. RIGHT KIDNEY: Normal size. Normal echogenicity. No solid or suspicious masses. No hydronephros is. No calcifications. LEFT KIDNEY: Normal size. Normal echogenicity. No solid or suspicious masses. No hydronephrosi s. No calcifications. SPLEEN: Normal size. No solid masses. PERITONEAL AND PLEURAL SPACES: No ascites or effusions. OTHER: No other significant finding. IMPRESSION: Status post cholecystectomy. Hepatic steatosis. No acute findings. TECHNICAL DOCUMENTATION: JOB ID: [id number] 2010 [employer]- All Rights Reserved Reading location - IP/workstation name: [email or web address]
== END ==
LOC: WI 07:00
PROVIDERS: ATTEND Family Medicine
DX: R10.84 Generalized abdominal pain (principal); K76.0 Fatty (change of) liver, not elsewhere classified
CPT/HCPCS: 76700